=== PATIENT | male | born 1955 | race Caucasian/White ===

== ENCOUNTER 2019-10-16 16:00 | Observation (INO) ==
[2019-10-16] MEDS ORDERED: ASPIRIN 81 MG CHEW PO STA (16:18)
[2019-10-16 16:28] LABS: Basophils # (auto) 0.06 K/uL (0-0.2); Basophils % (auto) 0.5 %; Eosinophils # (auto) 0.11 K/uL (0-0.5); Eosinophils % (auto) 0.9 %; Hematocrit (blood only) 45.5 % (42-52); Immature Granulocytes # (auto) 0.02 K/uL (0.00-0.02); Immature Granulocytes % (auto) 0.2 %; Lymphocytes # (auto) 2.87 K/uL (1.2-3.4); Lymphocytes % (auto) 23.9 %; Mean Corpuscular Hemoglobin 33.1 pg (25-34); Mean Corpuscular Hgb Conc 35.2 g/dL (32-36); Mean Platelet Volume 10.6 fL (7.4-10.4); Monocytes # (auto) 1.36 K/uL (0.11-0.59); Monocytes % (auto) 11.3 %; Neutrophils # (auto) 7.58 K/uL (1.4-6.5); Neutrophils % (auto) 63.2 %; Platelet Count 191 K/uL (130-400); RDW Coefficient of Variation 13.1 % (11.5-14.5); RDW Standard Deviation 45.4 fL (36.4-46.3); Red Blood Count 4.84 M/uL (4.7-6.1)
--- NOTE | 2019-10-16 16:28 | Emergency Department Note ---
Impression & Plan Chest pain, Depression ED Provider Note Provider: Kulwant Atwood MD DATE OF SERVICE: 10/16/2019 CHIEF COMPLAINT: Chest pain HISTORY OF PRESENT ILLNESS: Patient is a 64-year-old gentleman history of diabetes, hypertension, pneumonia presenting today with reports of 3 days of some epigastric and left-sided chest discomfort. Reports today he was driving back from [place] after a began to experience some worsening left- sided pain with left arm pain and some radiation to the right jaw. Came here for further evaluation of this started an hour or 2 ago. Patient denies any trauma. Does report that he is been under significant stress and feels depressed. Reports did recently moved here about a month ago from [place]. Denies fever. Reports weight loss over the last 2 years. Denies significant leg swelling. Denies a cardiac history. Patient reports he has had some interm ittent swelling of the lymph nodes of his neck worse earlier this now improved. No evidence of airway obstruction or stridor. Reports generalized fatigue and lack of interest in things. REVIEW OF SYSTEMS: A total of 10 review of systems was obtained and negative except as stated above in the HPI. PAST MEDICAL HISTORY: As noted above MEDICATIONS: Reviewed and include insulin SOCIAL HISTORY: Patient is a smoker. . PHYSICAL EXAM: GENERAL: alert and oriented in no acute distress on stretcher Head: normocephalic and atraumatic EYES: No injection, discharge or icterus. PERRL NECK: Trachea midline. Supple. ENT: Mucous membranes pink and moist. Minimal cervical lymphadenopathy. LUNGS: Airway patent. No retractions. Breath sounds clear HEART: Regular rate and rhythm. No chest wall tenderness ABDOMEN: Soft with some mild to moderate epigastric left upper quadrant tenderness. SKIN: Acyanotic, warm, dry, without rashes EXTREMITIES: Without swelling, tenderness or deformity except for some slight tenderness of the left upper arm without erythema or fluctuance appreciated, no crepitus here either NEUROLOGICAL: No focal deficits. No aphasia. No facial droop or slurred speech. Ambulatory. Psych: Denies HI. Reports loss of hope and SI. States he is a plan but does not divulge this to me. EK bpm normal sinus rhythm. No PVC. No acute ST segment elevation or dep ression. Normal QTC and axis. CONTINUOUS CARDIAC MONITORING: was ordered and showed a heart rate of 88 bpm in sinus rhythm Patient's hypertension was referred to the [facility] COURSE: 1612 Patient was first seen and H&P performed. 1640 patient states he sometimes gets epigastric discomfort like this and gave a GI cocktail to him. He had long discussion with me about stresses in his life regarding the recent loss of daughter's , recent extramarital stresses and recent move and states he is very depressed. Has had recent thoughts of wanting to harm himself. Reports history 35 years ago of suicide attempt. 1833 Patient reassessed and updated. Patient was having some improvement of his chest and jaw symptoms. Still with some minimal left arm pain. Patient was still tearful and showing me pictures of his parents grave. Will discuss further observation here in the hospital with the hospitalist. 192 discussed the case with the [facility] hospitalist Dr. Dai for further evaluation as an inpatient. Patient's laboratory studies and imaging reviewed. Differential includes Cardiac ischemia, aortic dissection, pulmonary embolism, pneumothorax, pneumonia, pericarditis, myocarditis, esophageal rupture, GERD, cholecystitis, pancreatitis, musculoskeletal, as well as other pathologies. IMPRESSION/MEDICAL DECISION MAKING: Patient taken immediately from triage to room a 1 for assessment they report he was diaphoretic complaining of epigastric and chest discomfort rating to left arm. Initially seen there then moved to room B3 for further evaluation. EKG without significant acute findings. Has had some of the symptoms for several days although worsening now with radiation to left arm and neck. No trauma findings. No fever or infectious symptoms. Given the recent travel and complaints to complete a CT of the chest as well as CT abdomen pelvis to exclude PE or other intrathoracic or intra-abdominal pathology. Basic labs are completed to exclude hepatitis or pancreatitis. Troponin was sent. Given aspirin here initially. Numbness is fingers could be diabetic neuropathy versus stress or anxiety symptoms. States he has generalized fatigue and the tingling could also represent some anxiety depression symptoms specially in light of the today as well as some social stresses at home and a recent move from out of state. Patient does report active SI and states he has thought of a plan to not take his medicines before but does not divulge more. Symptoms physically manifesting could be this again or little bit GI. Given a GI cocktail. Has recently had his Zoloft increased by PCP. Recently started on levothyroxine. TSH was within normal limits today. Troponin is undetectable. No evidence of pancreatitis or hepatitis. White count of 12 nonspecific. Patient on reassessment has improvement of symptoms although still stated little bit of 2 out of 10 left arm pain. Heart score 4. CT scan reviewed without evidence of PE or acute intra-abdominal pathology. Patient made aware of findings of infrarenal aortic aneurysm. Should follow-up with his doctor about this. Coronary calcifications noted on here with a heart score 4 did recommend further observation overnight for cardiac rule out. Patient would also benefit from likely psychiatric consultation for his severe depression. Discussed with the patient was in agreement. Hospitalist will evaluate. Patient's was later updated via phone. DIAGNOSIS: Chest pain, anxiety/depression, suicidal thoughts DISPOSITION: Hospitalist will evaluate Patient was agreeable with this plan. Past Med/Surg History Social History Preferred Language: Belarusian Communication Ability: Effective Beliefs That Will Affect Care: None and Spiritual Current Living Situation: Spouse Current Living Situation Comment: lives with Other Information That Helps Us Care for You: Yes ( suffers from PTSD and in jae had an affair) Feels Safe at Home: Yes Safety Concerns: Feels Safe At This Time Smoking Status: Heavy tobacco smoker Tobacco Type: cigarettes ; Cigarettes Per Day: 20 ; Tobacco Cessation Education Requested by Patient: No Hx Alcohol Use: No Hx Substance Use: No Allergies Allergies Allergy/AdvReac Type Severity Reaction Status Date / Time cat dander Allergy itchy Verified 10/16/19 17:05 eyes, sneezing dog dander Allergy itchy Verified 10/16/19 17:05 eyes, sneezing Home Meds Home Medications Medication Instructions Recorded Confirmed Nasal [place] Unknown 1 dose NA UD PRN 10/16/19 10/16/19 T-Relief Cbd+13 1 dose SC UD 10/16/19 10/16/19 albuterol sulfate [Ventolin HFA] 2 puff INHALATION Q4 PRN 10/16/19 10/16/19 aspirin 325 mg PO DAILY 10/16/19 10/16/19 atorvastatin 40 mg PO QPM 10/16/19 10/16/19 cetirizine [Zyrtec] 5 mg PO QPM 10/16/19 10/16/19 cholecalciferol (vitamin D3) 125 mcg PO DAILY 10/16/19 10/16/19 [Vitamin D3] fexofenadine 180 mg PO DAILY PRN 10/16/19 10/16/19 insulin NPH isoph U-100 human 50 unit SUBCUT BID 10/16/19 10/16/19 [Novolin N NPH U-100 Insulin] insulin regular hum U-500 conc 0 unit SUBCUT TIDM 10/16/19 10/16/19 [Humulin R U-500 (Conc) Kwikpen] levothyroxine 50 mcg PO DAILY 10/16/19 10/16/19 liraglutide [Victoza 3-Jones] 1.2 mg SUBCUT DAILY 10/16/19 10/16/19 lisinopril [Zestril] 10 mg PO DAILY 10/16/19 10/16/19 metformin 1,000 mg PO BID 10/16/19 10/16/19 sertraline [Zoloft] 100 mg PO DAILY 10/16/19 10/16/19 sildenafil 100 mg PO DAILY PRN 10/16/19 10/16/19 Results & Data (ED) Vital Signs Vital Signs - 24 hr 10/16/19 16:05 10/16/19 16:06 10/16/19 16:10 Temperature 36.8 C Temperature Source Oral Pulse Rate 93 H 101 H 95 H Pulse Rate from SpO2 Sensor 94 H Pulse Rhythm Regular Pulse Strength Normal Respiratory Rate 18 Respiratory Effort / Characteristics Non-Labored Spontaneous Respiratory Depth Normal Respiratory Pattern Regular Blood Pressure 120/75 120/75 Blood Pressure Mean 95 90 Blood Pressure Position Sitting Pulse Oximetry 97 96 Oxygen Delivery Method Room Air Sepsis Recent Fever Within 48 Hours No Sepsis New/Unexplained Change in Mental Status No Sepsis Action Taken by Nursing No Action Required 10/16/19 16:20 10/16/19 16:21 10/16/19 16:30 Temperature Temperature Source Pulse Rate 95 H 90 92 H Pulse Rate from SpO2 Sensor 93 H 91 H 92 H Pulse Rhythm Pulse Strength Respiratory Rate 19 12 19 Respiratory Effort / Characteristics Respiratory Depth Respiratory Pattern Blood Pressure 103/66 96/55 L Blood Pressure Mean 77 65 Blood Pressure Position Pulse Oximetry 95 95 95 Oxygen Delivery Method Sepsis Recent Fever Within 48 Hours Sepsis New/Unexplained Change in Mental Status Sepsis Action Taken by Nursing 10/16/19 16:40 10/16/19 16:50 10/16/19 17:00 Temperature Temperature Source Pulse Rate 90 89 88 Pulse Rate from SpO2 Sensor 89 89 89 Pulse Rhythm Pulse Strength Respiratory Rate 16 15 13 Respiratory Effort / Characteristics Respiratory Depth Respiratory Pattern Blood Pressure 96/53 L Blood Pressure Mean 61 Blood Pressure Position Pulse Oximetry 95 97 96 Oxygen Delivery Method Sepsis Recent Fever Within 48 Hours Sepsis New/Unexplained Change in Mental Status Sepsis Action Taken by Nursing 10/16/19 17:10 10/16/19 17:20 10/16/19 17:30 Temperature Temperature Source Pulse Rate 85 87 93 H Pulse Rate from SpO2 Sensor 87 87 83 Pulse Rhythm Pulse Strength Respiratory Rate 16 17 15 Respiratory Effort / Characteristics Respiratory Depth Respiratory Pattern Blood Pressure 113/69 Blood Pressure Mean 80 Blood Pressure Position Pulse Oximetry 98 96 96 Oxygen Delivery Method Sepsis Recent Fever Within 48 Hours Sepsis New/Unexplained Change in Mental Status Sepsis Action Taken by Nursing 10/16/19 17:31 10/16/19 17:40 10/16/19 17:50 Temperature Temperature Source Pulse Rate 86 89 86 Pulse Rate from SpO2 Sensor 85 89 87 Pulse Rhythm Pulse Strength Respiratory Rate 14 20 14 Respiratory Effort / Characteristics Respiratory Depth Respiratory Pattern Blood Pressure Blood Pressure Mean Blood Pressure Position Pulse Oximetry 95 96 97 Oxygen Delivery Method Sepsis Recent Fever Within 48 Hours Sepsis New/Unexplained Change in Mental Status Sepsis Action Taken by Nursing 10/16/19 18:00 10/16/19 18:01 10/16/19 18:16 Temperature Temperature Source Pulse Rate 81 Pulse Rate from SpO2 Sensor 85 Pulse Rhythm Pulse Strength Respiratory Rate 19 44 H Respiratory Effort / Characteristics Respiratory Depth Respiratory Pattern Blood Pressure Blood Pressure Mean 91 Blood Pressure Position Pulse Oximetry 96 Oxygen Delivery Method Sepsis Recent Fever Within 48 Hours Sepsis New/Unexplained Change in Mental Status Sepsis Action Taken by Nursing 10/16/19 18:20 10/16/19 18:30 10/16/19 18:40 Temperature Temperature Source Pulse Rate 89 84 88 Pulse Rate from SpO2 Sensor 89 85 90 Pulse Rhythm Pulse Strength Respiratory Rate 12 11 L 20 Respiratory Effort / Characteristics Respiratory Depth Respiratory Pattern Blood Pressure 128/79 117/72 Blood Pressure Mean 107 90 Blood Pressure Position Pulse Oximetry 97 95 96 Oxygen Delivery Method Sepsis Recent Fever Within 48 Hours Sepsis New/Unexplained Change in Mental Status Sepsis Action Taken by Nursing 10/16/19 18:50 10/16/19 19:00 10/16/19 19:10 Temperature Temperature Source Pulse Rate 91 H 92 H 89 Pulse Rate from SpO2 Sensor 89 82 90 Pulse Rhythm Pulse Strength Respiratory Rate 13 17 26 H Respiratory Effort / Characteristics Respiratory Depth Respiratory Pattern Blood Pressure 135/88 Blood Pressure Mean 107 Blood Pressure Position Pulse Oximetry 97 96 95 Oxygen Delivery Method Sepsis Recent Fever Within 48 Hours Sepsis New/Unexplained Change in Mental Status Sepsis Action Taken by Nursing 10/16/19 19:20 10/16/19 19:30 10/16/19 19:39 Temperature Temperature Source Pulse Rate 88 86 Pulse Rate from SpO2 Sensor 87 88 Pulse Rhythm Pulse Strength Respiratory Rate 14 20 Respiratory Effort / Characteristics Respiratory Depth Respiratory Pattern Blood Pressure 126/76 Blood Pressure Mean 94 Blood Pressure Position Pulse Oximetry 96 94 98 Oxygen Delivery Method Room Air Room Air Room Air Sepsis Recent Fever Within 48 Hours Sepsis New/Unexplained Change in Mental Status Sepsis Action Taken by Nursing 10/16/19 19:40 10/16/19 19:50 10/16/19 20:00 Temperature Temperature Source Pulse Rate 88 89 88 Pulse Rate from SpO2 Sensor Pulse Rhythm Pulse Strength Respiratory Rate 15 20 18 Respiratory Effort / Characteristics Respiratory Depth Respiratory Pattern Blood Pressure Blood Pressure Mean Blood Pressure Position Pulse Oximetry Oxygen Delivery Method Sepsis Recent Fever Within 48 Hours Sepsis New/Unexplained Change in Mental Status Sepsis Action Taken by Nursing 10/16/19 20:01 10/16/19 20:10 10/16/19 20:20 Temperature Temperature Source Pulse Rate 89 90 83 Pulse Rate from SpO2 Sensor Pulse Rhythm Pulse Strength Respiratory Rate 13 21 18 Respiratory Effort / Characteristics Respiratory Depth Respiratory Pattern Blood Pressure 95/66 L Blood Pressure Mean 84 Blood Pressure Position Pulse Oximetry 96 Oxygen Delivery Method Room Air Sepsis Recent Fever Within 48 Hours Sepsis New/Unexplained Change in Mental Status Sepsis Action Taken by Nursing Laboratory Data Result diagrams: 10/16/19 16:06 10/16/19 16:06 Lab Results 10/16/19 10/16/19 10/16/19 Range/Units 16:06 16:06 16:06 WBC 12.00 H (4.8-10.8) K/uL RBC 4.84 (4.7-6.1) M/uL Hgb 16.0 (14.0-18.0) g/dL Hct 45.5 (42-52) % MCV 94.0 (80-100) fL MCH 33.1 (25-34) pg MCHC 35.2 (32-36) g/dL RDW Std Deviation 45.4 (36.4-46.3) fL RDW Coeff of August 13.1 (11.5-14.5) % Plt Count 191 (130-400) K/uL MPV 10.6 H (7.4-10.4) fL Immature Gran % (Auto) 0.2 % Neut % (Auto) 63.2 % Lymph % (Auto) 23.9 % [place] % (Auto) 11.3 % Eos % (Auto) 0.9 % Baso % (Auto) 0.5 % Immature Gran # (Auto) 0.02 (0.00-0.02) K/uL Neut # (Auto) 7.58 H (1.4-6.5) K/uL Lymph # (Auto) 2.87 (1.2-3.4) K/uL [place] # (Auto) 1.36 H (0.11-0.59) K/uL Eos # (Auto) 0.11 (0-0.5) K/uL Baso # (Auto) 0.06 (0-0.2) K/uL PT 10.3 (9.0-12.0) Seconds INR 1.0 (0.9-1.1) APTT 25.6 (21.0-31.0) Seconds PTT Ratio 0.9 Sodium 141 (136-145) mmol/L Potassium 4.5 (3.5-5.1) mmol/L Chloride 109 H (98-107) mmol/L Carbon Dioxide 22 (21-32) mmol/L Anion Gap 10.0 (3-11) BUN 29 H (7-18) mg/dl Creatinine 1.30 (0.6-1.4) mg/dl Est Cr Clr Drug Dosing 67.1 ml/min Est GFR ( Amer) 66.4 Est GFR (Non-Af Amer) 57.3 BUN/Creatinine Ratio 22.7 H (10-20) Glucose 193 H (70-99) mg/dl Calcium 9.1 (8.5-10.1) mg/dl Magnesium 2.3 (1.8-2.4) mg/dl Total Bilirubin 0.4 (0.2-1) mg/dl AST 15 (15-37) U/L ALT 40 (12-78) U/L Alkaline Phosphatase 69 (45-117) U/L Troponin I < 0.015 (0-0.045) ng/ml Total Protein 7.6 (6.4-8.2) gm/dl Albumin 3.8 (3.4-5.0) gm/dl Globulin 3.8 (2.5-4.0) gm/dl Albumin/Globulin Ratio 1.0 (0.9-2) Lipase 249 (73-393) U/L TSH 2.340 (0.300-4.500) uIu/ml Administered Medications Ioversol (Optiray 320 125ml) 119 ml IV ONCE PRN PRN Reason: Interaction Checking Stop: 10/20/19 18:07 Last Admin: 10/16/19 18:09 Dose: 119 ml Documented by: [id number] Discontinued Medications Al Hydrox/Mg Hydrox/Simethicone () 1 dose PO ONE ONE Stop: 10/16/19 16:43 Last Admin: 10/16/19 16:56 Dose: 1 dose Documented by: [id number] Aspirin (Aspirin Chew) 324 mg PO NOW STA Stop: 10/16/19 16:19 Last Admin: 10/16/19 16:56 Dose: 324 mg Documented by: [id number] Diphenhydramine HCl (Benadryl Capsule) 25 mg PO NOW ONE Stop: 10/16/19 18:48 Last Admin: 10/16/19 19:39 Dose: 25 mg Documented by: [id number] Sodium Chloride (Nss 1000ml) 1,000 mls @ 999 mls/hr IV .Q1H1M LILA Stop: 10/16/19 17:30 Last Infusion: 10/16/19 17:57 Dose: 0 mls/hr Documented by: [id number] Admin: 10/16/19 16:56 Dose: 999 mls/hr Documented by: [id number] Discharge Plan Visit Data Chief Complaint: Chest Pain Stated Complaint: CHEST PAIN INTO LEFT ARM RIGHT JAW ED Provider: Kulwant Atwood Discharge Problem: Chest pain, Depression Patient Disposition: Home - Self-Care Condition: Good Discharge Instructions Interventions: ED Discharge Assessment Last Done: 10/16/19 22:50 Discharge Problem: Chest pain Qualifiers: Chest pain type: unspecified Qualified Code(s): R07.9 - Chest pain, unspecified Depression Qualifiers: Depression Type: major depressive disorder Major depression recurrence: recurrent Active/Remission status: currently active Major depression episode severity: severe Psychotic features: without psychotic features Qualified Code(s): F33.2 - Major depressive disorder, recurrent severe without psychotic features
[2019-10-16] MEDS ORDERED: SODIUM CHLORIDE 0.9% 1000ML 1,000 ML IV SCH (16:30)
[2019-10-16 16:39] LABS: Partial Thromboplastin Ratio 0.9; Partial Thromboplastin Time 25.6 Seconds (21.0-31.0); Prothrombin Time 10.3 Seconds (9.0-12.0)
[2019-10-16 16:42] LABS: Chloride 109 mmol/L (98-107); Potassium 4.5 mmol/L (3.5-5.1); Sodium 141 mmol/L (136-145)
[2019-10-16] MEDS ORDERED: GI COCKTAIL ED USE PO ONE (16:42)
[2019-10-16 16:47] LABS: Alanine Aminotransferase 40 U/L (12-78); Albumin Level 3.8 gm/dl (3.4-5.0); Aspartate Aminotransferase 15 U/L (15-37); BUN Creatinine Ratio 22.7 (10-20); Blood Urea Nitrogen 29 mg/dl (7-18); Calcium 9.1 mg/dl (8.5-10.1); Carbon Dioxide 22 mmol/L (21-32); Creatinine Clr Calc Pharmacy 67.1 ml/min; Est GFR (African American) 66.4; Est GFR (Non-African American) 57.3; Glucose 193 mg/dl (70-99); Lipase 249 U/L (73-393)
[2019-10-16 16:58] LABS: Alkaline Phosphatase 69 U/L (45-117); Bilirubin,Total 0.4 mg/dl (0.2-1); Globulin 3.8 gm/dl (2.5-4.0); Total Protein 7.6 gm/dl (6.4-8.2); Troponin I < 0.015 ng/ml (0-0.045)
--- NOTE | 2019-10-16 17:08 | XRay Report ---
SINGLE VIEW CHEST CLINICAL HISTORY: Atypical chest pain. FINDINGS: An AP, portable, upright chest radiograph is obtained. No prior studies are available for c omparison at the time of dictation. The examination is degraded by portable technique and apical lord otic positioning. The cardiomediastinal silhouette is top normal for projection noting atheroscleroti c calcification of the thoracic aorta. There is mild bibasilar scarring/atelectasis. No airspace cons olidation or large pleural effusion is identified. No pneumothorax is seen. The bony thorax is grossl y intact. IMPRESSION: No active disease in the chest. ACT 112: Negative or not required by law. Electronically signed by: Wes Ramos M.D. 10/16/2019 5:06 PM
[2019-10-16] MEDS ORDERED: OPTIRAY 320 125ml IV PRN (18:08)
--- NOTE | 2019-10-16 18:31 | CT Scan Report ---
CT ANGIOGRAM OF THE CHEST; CT SCAN OF THE ABDOMEN AND PELVIS WITH IV CONTRAST CLINICAL HISTORY: Atypical chest pain. Epigastric abdominal pain. COMPARISON STUDY: Chest x-ray dated 10/16/2019. TECHNIQUE: Following the IV administration of 119 of Optiray 320, CT angiogram of the chest is perfor med from the upper abdomen to the thoracic inlet utilizing the pulmonary embolus protocol. Images are reviewed in the axial, sagittal, coronal planes. 3-D MIPS images are created and assessed. Subsequen tly, CT scan of the abdomen and pelvis was performed from the lung bases to the proximal femora. Imag es are reviewed in the axial, sagittal, and coronal planes. IV contrast was administered without comp lication. A dose lowering technique was utilized adhering to the principles of ALARA. CT DOSE: 1680.04 mGy.cm FINDINGS: CHEST: Thyroid: Imaged portions of the thyroid gland are normal in size and attenuation. Thoracic aorta: There is mild atherosclerotic calcification of the thoracic aorta, which is normal in caliber and demonstrates bovine variant arch anatomy. No dissection is seen. Pulmonary vasculature: The pulmonary trunk is normal in caliber. There are no filling defects identif ied in the main, lobar, or segmental pulmonary arteries to indicate pulmonary embolus. Heart: The heart is normal in size and without pericardial effusion. The coronary arteries are densel y calcified. Lungs and pleural spaces: Evaluation of the lung parenchyma is modestly degraded by motion artifact. There is no airspace consolidation or pleural effusion. Scarring/atelectasis is noted at the lung bas es. The trachea and central airways are clear. Mild diffuse peribronchial thickening is observed. Mediastinum: There is no mediastinal lymphadenopathy. Corinne: Clear. Axillae: There is no axillary lymphadenopathy. Bony thorax: No lytic or blastic lesions are identified. ABDOMEN AND PELVIS: Liver: The contrast-enhanced liver is enlarged, measuring 21.6 cm in length. The liver is otherwise n ormal in contour and attenuation. There is no intrahepatic or ductal dilatation. The hepatic veins an d portal veins are patent. Gallbladder: Unremarkable. Spleen: Normal in size and attenuation. Pancreas: Unremarkable. Adrenal glands: Unremarkable. Kidneys: The contrast enhanced demonstrate mild cortical atrophy and are without hydronephrosis. The kidneys enhance symmetrically. Abdominal vasculature: There is advanced atherosclerotic calcification and ectasia of the abdominal a rod. An infrarenal abdominal catheter is in measure up to 3.3 cm. There is aneurysmal dilatation of the right common iliac artery which measures up to 2.1 cm. Stomach and bowel: There is a small hiatal hernia. There is moderate to advanced colonic diverticulos is without CT evidence of acute diverticulitis. There is moderate colonic fecal retention. No bowel o bstruction is seen. The appendix is well-visualized and normal. Peritoneum: There is no intraperitoneal free air or abdominal ascites. Lymphadenopathy: None. Pelvic viscera: The bladder, prostate, and seminal vesicles are normal as imaged. Skeletal structures: Mild to moderate lumbosacral spondylosis is observed. No lytic or blastic lesion s are seen. IMPRESSION: 1. There is no evidence of pulmonary embolus in the main, lobar, or segmental pulmonary arteries. 2. There is no airspace consolidation or pleural effusion. 3. Mild diffuse peribronchial thickening suggests bronchitis/reactive air disease. Clinical correlati on will be required. 4. There are no acute infectious or inflammatory findings in the abdomen or pelvis. 5. There is a 3.3 cm aneurysm of the infrarenal abdominal aorta. 6. 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 7. Hepatomegaly. 8. Moderate to advanced colonic diverticulosis without CT evidence of acute diverticulitis. 9. There is advanced atherosclerotic calcification of the coronary arteries. 10. Additional findings as above. ACT 112: Negative or not required by law. Electronically signed by: Wes Ramos M.D. 10/16/2019 6:30 PM
[2019-10-16 19:59] LABS: Magnesium 2.3 mg/dl (1.8-2.4)
--- NOTE | 2019-10-16 20:22 | History & Physical Report ---
Date of Service October 16, 2019 Assessment & Plan (1) Chest pain: Possible GERD Rule out ACS given risk factors DM 2 insulin requiring, BSG elevated No recent hemoglobin A1c on file hyperlipidemia on statin Rx mood disorder, suboptimal with fleeting suicidal ideations AAA, incidental finding on CT read Possible JANET as per patient account ongoing tobacco abuse OBS PCU Initiate H2 marv Rx for GERD Follow troponin TTE, Cardiology consult in a.m. RE chest pain Update hemoglobin A1c, lipid profile Suicide precautions Psych consult RE depression with suicidality Basal insulin, ISS BG goal [id number], carb count coverage Outpatient follow-up surveillance imaging for AAA Outpatient sleep study Nicotine patch, patient strongly counseled to stop smoking given PVD on CT. DVT prophylaxis. Lovenox subcu Full code Patient's family requesting updates from providers. Ms. Janet Arteaga (), contact #[phone] Mr. Mauri Joshi (son), contact #[phone] Text document was generated using blueKiwi voice recognition software. It may contain grammatical or spelling errors. Kindly contact undersigned for clarification of any documentation item in question. History of Present Illness Chief Complaint: Chest pain Primary Care Provider: Maddy Albert, History obtained from patient, family, and records. Medical history significant for DM 2 insulin requiring, hyperlipidemia, mood disorder, past alcohol abuse, ongoing tobacco abuse. Patient moved to [facility] about a month ago after residing in [place] the last 2 years. The last 2 weeks patient noted worsening shortness of breath usually on exertion. Epigastric discomfort a few days in a week described as indigestion-like relieved by baking soda at home. Significant personal stressors of late, fleeting suicidal ideations. Patient was driving back to [facility] from [place] after attending [facility] this afternoon when he experienced achy subcostal discomfort going to the left arm somewhat different from indigestion symptoms. Usual smoker's cough symptoms as per patient. At the ER, patient given aspirin and GI cocktail. Patient currently comfortable. 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 Allergies Allergy/AdvReac Type Severity Reaction Status Date / Time cat dander Allergy itchy Verified 10/16/19 17:05 eyes, sneezing dog dander Allergy itchy Verified 10/16/19 17:05 eyes, sneezing Home Medications Home Medications Medication Instructions Recorded Confirmed Type Nasal [place] Unknown 1 dose NA UD PRN 10/16/19 10/16/19 History T-Relief Cbd+13 1 dose SC UD 10/16/19 10/16/19 History albuterol sulfate [Ventolin HFA] 2 puff INHALATION Q4 PRN 10/16/19 10/16/19 History aspirin 325 mg PO DAILY 10/16/19 10/16/19 History atorvastatin 40 mg PO QPM 10/16/19 10/16/19 History cetirizine [Zyrtec] 5 mg PO QPM 10/16/19 10/16/19 History cholecalciferol (vitamin D3) 125 mcg PO DAILY 10/16/19 10/16/19 History [Vitamin D3] fexofenadine 180 mg PO DAILY PRN 10/16/19 10/16/19 History insulin NPH isoph U-100 human 50 unit SUBCUT BID 10/16/19 10/16/19 History [Novolin N NPH U-100 Insulin] insulin regular hum U-500 conc 0 unit SUBCUT TIDM 10/16/19 10/16/19 History [Humulin R U-500 (Conc) Kwikpen] levothyroxine 50 mcg PO DAILY 10/16/19 10/16/19 History liraglutide [Victoza 3-Jones] 1.2 mg SUBCUT DAILY 10/16/19 10/16/19 History lisinopril [Zestril] 10 mg PO DAILY 10/16/19 10/16/19 History metformin 1,000 mg PO BID 10/16/19 10/16/19 History sertraline [Zoloft] 100 mg PO DAILY 10/16/19 10/16/19 History sildenafil 100 mg PO DAILY PRN 10/16/19 10/16/19 History Past Med/Surg History Social History Preferred Language: Citizen Of [place] Communication Ability: Effective Beliefs That Will Affect Care: None and Spiritual Current Living Situation: Spouse Current Living Situation Comment: lives with Other Information That Helps Us Care for You: Yes ( suffers from PTSD and in jan[place] had an affair) Feels Safe at Home: Yes Safety Concerns: Feels Safe At This Time Smoking Status: Heavy tobacco smoker Tobacco Type: cigarettes ; Cigarettes Per Day: 20 ; Tobacco Cessation Education Requested by Patient: No Hx Alcohol Use: No Hx Substance Use: No Review of Systems Review of Systems: As per HPI, possible JANET symptoms as per patient, all 10 systems reviewed, all other ROS negative Physical Exam Physical Exam: GENERAL: Comfortable, obese, occasionally tearful, no respiratory distress SKIN: Normal color, warm HEENT: Bespectacled, [place] palpebral conjunctivae, no ptosis, moist buccal mucosa NECK : Supple, short neck, no tenderness CHEST : Decreased breath sounds, expiratory wheezes that clear post coughing, no tenderness HEART : RRR, no obvious murmurs ABDOMEN: Some distention, nontender EXTREMITIES : No LE swelling, no LE tenderness, no other conspicuous deformities noted NEUROLOGIC : Coherent, no facial asymmetry, no other gross focality Results & Data Results & Data ([facility]) Vital Signs (Past 12 Hours) Vital Signs Temp Pulse Resp BP Pulse Ox 10/16/19 19:39 98 10/16/19 19:30 86 20 126/76 94 10/16/19 19:20 88 14 96 10/16/19 19:10 89 26 H 95 10/16/19 19:00 92 H 17 135/88 96 10/16/19 18:50 91 H 13 97 10/16/19 18:40 88 20 96 10/16/19 18:30 84 11 L 117/72 95 10/16/19 18:20 89 12 128/79 97 10/16/19 18:16 44 H 10/16/19 18:00 81 19 96 10/16/19 17:50 86 14 97 10/16/19 17:40 89 20 96 10/16/19 17:31 86 14 95 10/16/19 17:30 93 H 15 113/69 96 10/16/19 17:20 87 17 96 10/16/19 17:10 85 16 98 10/16/19 17:00 88 13 96/53 L 96 10/16/19 16:50 89 15 97 10/16/19 16:40 90 16 95 10/16/19 16:30 92 H 19 96/55 L 95 10/16/19 16:21 90 12 95 10/16/19 16:20 95 H 19 103/66 95 10/16/19 16:10 95 H 10/16/19 16:06 36.8 C 101 H 18 120/75 96 10/16/19 16:05 93 H 120/75 97 Laboratory Results Laboratory Results WBC 12.00 K/uL (4.8-10.8) H 10/16/19 16:06 RBC 4.84 M/uL (4.7-6.1) 10/16/19 16:06 Hgb 16.0 g/dL (14.0-18.0) 10/16/19 16:06 Hct 45.5 % (42-52) 10/16/19 16:06 MCV 94.0 fL (80-100) 10/16/19 16:06 MCH 33.1 pg (25-34) 10/16/19 16:06 MCHC 35.2 g/dL (32-36) 10/16/19 16:06 RDW Std Deviation 45.4 fL (36.4-46.3) 10/16/19 16:06 RDW Coeff of August 13.1 % (11.5-14.5) 10/16/19 16:06 Plt Count 191 K/uL (130-400) 10/16/19 16:06 MPV 10.6 fL (7.4-10.4) H 10/16/19 16:06 Immature Gran % (Auto) 0.2 % 10/16/19 16:06 Neut % (Auto) 63.2 % 10/16/19 16:06 Lymph % (Auto) 23.9 % 10/16/19 16:06 [place] % (Auto) 11.3 % 10/16/19 16:06 Eos % (Auto) 0.9 % 10/16/19 16:06 Baso % (Auto) 0.5 % 10/16/19 16:06 Immature Gran # (Auto) 0.02 K/uL (0.00-0.02) 10/16/19 16:06 Neut # (Auto) 7.58 K/uL (1.4-6.5) H 10/16/19 16:06 Lymph # (Auto) 2.87 K/uL (1.2-3.4) 10/16/19 16:06 [place] # (Auto) 1.36 K/uL (0.11-0.59) H 10/16/19 16:06 Eos # (Auto) 0.11 K/uL (0-0.5) 10/16/19 16:06 Baso # (Auto) 0.06 K/uL (0-0.2) 10/16/19 16:06 PT 10.3 Seconds (9.0-12.0) 10/16/19 16:06 INR 1.0 (0.9-1.1) 10/16/19 16:06 APTT 25.6 Seconds (21.0-31.0) 10/16/19 16:06 PTT Ratio 0.9 10/16/19 16:06 Sodium 141 mmol/L (136-145) 10/16/19 16:06 Potassium 4.5 mmol/L (3.5-5.1) 10/16/19 16:06 Chloride 109 mmol/L (98-107) H 10/16/19 16:06 Carbon Dioxide 22 mmol/L (21-32) 10/16/19 16:06 Anion Gap 10.0 (3-11) 10/16/19 16:06 BUN 29 mg/dl (7-18) H 10/16/19 16:06 Creatinine 1.30 mg/dl (0.6-1.4) 10/16/19 16:06 Est Cr Clr Drug Dosing 67.1 ml/min 10/16/19 16:06 Est GFR ( Amer) 66.4 10/16/19 16:06 Est GFR (Non-Af Amer) 57.3 10/16/19 16:06 BUN/Creatinine Ratio 22.7 (10-20) H 10/16/19 16:06 Glucose 193 mg/dl (70-99) H 10/16/19 16:06 Calcium 9.1 mg/dl (8.5-10.1) 10/16/19 16:06 Magnesium 2.3 mg/dl (1.8-2.4) 10/16/19 16:06 Total Bilirubin 0.4 mg/dl (0.2-1) 10/16/19 16:06 AST 15 U/L (15-37) 10/16/19 16:06 ALT 40 U/L (12-78) 10/16/19 16:06 Alkaline Phosphatase 69 U/L (45-117) 10/16/19 16:06 Troponin I < 0.015 ng/ml (0-0.045) 10/16/19 16:06 Total Protein 7.6 gm/dl (6.4-8.2) 10/16/19 16:06 Albumin 3.8 gm/dl (3.4-5.0) 10/16/19 16:06 Globulin 3.8 gm/dl (2.5-4.0) 10/16/19 16:06 Albumin/Globulin Ratio 1.0 (0.9-2) 10/16/19 16:06 Lipase 249 U/L (73-393) 10/16/19 16:06 TSH 2.340 uIu/ml (0.300-4.500) 10/16/19 16:[address] chest/abdomen/pelvis: 1. There is no evidence of pulmonary embolus in the main, lobar, or segmental pulmonary arteries. 2. There is no airspace consolidation or pleural effusion. 3. Mild diffuse peribronchial thickening suggests bronchitis/reactive air disease. Clinical correlation will be required. 4. There are no acute infectious or inflammatory findings in the abdomen or pelvis. 5. There is a 3.3 cm aneurysm of the infrarenal abdominal aorta. 6. 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 7. Hepatomegaly. 8. Moderate to advanced colonic diverticulosis without CT evidence of acute di verticulitis. 9. There is advanced atherosclerotic calcification of the coronary arteries. EKG as per my interpretation : Rate 100, NSR, normal axis, incomplete RBBB, T wave flattening lateral leads (1) Chest pain Chest pain type: unspecified Qualified Code(s): R07.9 - Chest pain, unspecified
[2019-10-16] MEDS ORDERED: MoRPHine SULFATE 4 MG/ML 1 ML CARP\\VIAL IV PRN (23:34)
[2019-10-16] MEDS ORDERED: GLUCOSE 10 TABS/TUBE PO PRN (23:34)
[2019-10-16] MEDS ORDERED: SODIUM CHLORIDE 0.45 % 1,000 ML IV ONE (23:34)
[2019-10-16] MEDS ORDERED: PROMETHAZINE HCL 12.5 MG in SODIUM CHLORIDE 0.9% 50 ML IV PRN (23:34)
[2019-10-16] MEDS ORDERED: DEXTROSE 50% 50 ML SYRINGE IV PRN (23:34)
[2019-10-16] MEDS ORDERED: TRAMADOL HCL 50 MG TABLET PO PRN (23:34)
[2019-10-16] MEDS ORDERED: NITROGLYCERIN SL 0.4 MG/TAB TAB SL PRN (23:34)
[2019-10-16] MEDS ORDERED: GLUCOSE 40% GEL 15 GM TUBE PO PRN (23:34)
[2019-10-16] MEDS ORDERED: ACETAMINOPHEN 325 MG TAB PO PRN (23:34)
[2019-10-16] MEDS ORDERED: FEXOFENADINE HCL 180 MG TAB PO PRN (23:34)
[2019-10-16] MEDS ORDERED: CARBOHYDRATES FOR HYPOGLYCEMIA PO PRN (23:34)
[2019-10-16] MEDS ORDERED: GLUCAGON FOR INJ 1 MG VIAL SQ PRN (23:34)
[2019-10-17] MEDS: NICOTINE 14 MG/24 HR PATCH TD SCH ×2 (02:46→11:37)
[2019-10-17] MEDS: ATORVASTATIN 40 MG TAB PO SCH ×2 (02:46→21:25)
[2019-10-17] MEDS: FAMOTIDINE 10 MG TABLET PO SCH ×3 (02:46→21:25)
[2019-10-17] MEDS: CETIRIZINE HCL 10 MG TABLET PO SCH ×2 (02:46→21:25)
[2019-10-17] MEDS: INSULIN ASPART 100 UNITS/ML 3 ML PEN SC SCH ×5 (02:50→21:28)
[2019-10-17] MEDS: INSULIN HUMAN NPH SC SCH ×3 (02:50→17:12)
[2019-10-17 05:47] LABS: Basophils # (auto) 0.05 K/uL (0-0.2); Basophils % (auto) 0.6 %; Eosinophils # (auto) 0.18 K/uL (0-0.5); Eosinophils % (auto) 2.1 %; Hematocrit (blood only) 43.8 % (42-52); Hemoglobin 14.9 g/dL (14.0-18.0); Immature Granulocytes # (auto) 0.02 K/uL (0.00-0.02); Immature Granulocytes % (auto) 0.2 %; Lymphocytes # (auto) 2.81 K/uL (1.2-3.4); Lymphocytes % (auto) 33.3 %; Mean Platelet Volume 10.5 fL (7.4-10.4); Monocytes # (auto) 0.89 K/uL (0.11-0.59); Monocytes % (auto) 10.5 %; Neutrophils % (auto) 53.3 %; Platelet Count 145 K/uL (130-400); RDW Coefficient of Variation 13.2 % (11.5-14.5); RDW Standard Deviation 45.3 fL (36.4-46.3); Red Blood Count 4.66 M/uL (4.7-6.1); White Blood Count 8.45 K/uL (4.8-10.8)
[2019-10-17 05:59] LABS: Partial Thromboplastin Time 26.9 Seconds (21.0-31.0)
[2019-10-17 06:04] LABS: Estimated Average Glucose 160 mg/dl; Hemoglobin A1C 7.2 % (4.5-5.6)
[2019-10-17] MEDS: LEVOTHYROXINE SODIUM 50 MCG TABLET PO SCH (06:09)
[2019-10-17 06:18] LABS: BUN Creatinine Ratio 22.3 (10-20); Blood Urea Nitrogen 19 mg/dl (7-18); Calcium 8.7 mg/dl (8.5-10.1); Carbon Dioxide 22 mmol/L (21-32); Chloride 110 mmol/L (98-107); Cholesterol 149 mg/dl (0-200); Est GFR (Non-African American) 90.6; Glucose 112 mg/dl (70-99); Potassium 4.2 mmol/L (3.5-5.1); Sodium 140 mmol/L (136-145)
[2019-10-17 06:24] LABS: Chol HDL Ratio 4; HDL Cholesterol 38 mg/dl; LDL Cholesterol Calculated 79 mg/dl; Triglycerides 161 mg/dl (0-150); Troponin I < 0.015 ng/ml (0-0.045); VLDL Cholesterol 32 mg/dl
[2019-10-17] MEDS: SERTRALINE HCL 100 MG TABLET PO SCH (08:36)
[2019-10-17] MEDS: lisinopriL 10 MG TAB PO SCH (08:36)
[2019-10-17] MEDS: ENOXAPARIN INJ 40 MG/0.4 ML SYR SQ SCH (08:37)
[2019-10-17] MEDS ORDERED: ASPIRIN 325 MG ECTAB PO SCH (09:00)
--- NOTE | 2019-10-17 10:32 | Cardiology Consultation ---
Date of Consultation October 17, 2019 Assessment & Plan (1) Chest pain: The patient describes recent exertional dyspnea with lower levels of exertion than previous. And chest discomfort. Serial cardiac enzymes and EKG x2 are negative. I am very concerned however that given his underlying cardiac risk factors including longstanding diabetes, obesity, dyslipidemia, hypertension, strong family history of coronary heart disease, cigarette smoking, newly diagnosed 3.3 cm abdominal aortic aneurysm, and severe coronary artery calcification noted on CT of the chest, that his pretest probably for underlying significant coronary heart disease is very high. Would recommend ASA 81 mg (rather than 325), continued atorvastatin, add metoprolol. Echo in process , will review. Remain in hospital for cardiac cath on 10/20/19. Pt agreeable. (2) SVT (supraventricular tachycardia): Asymptomatic brief runs, add metoprolol. (3) Dyslipidemia: LDL cholesterol 79 mg/dL on atorvastatin 40. Add ezetimibe 10 mg daily. (4) Depression: Patient currently on one-to-one supervision. Agree with psychiatric evaluation. (5) AAA (abdominal aortic aneurysm): Incidental finding of 3.3 cm abdominal aortic aneurysm on CT. Abdominal aorta with noted diffuse atherosclerosis. Continue aggressive statin therapy as noted above. Repeat surveillance CT or ultrasound in 6 months. History of Present Illness Attending Physician: Johnnie Jones MD History of Present Illness Harlan Arteaga is a 64 year old male seen in cardiology consultation per the request of Dr Liang for the evaluation of chest pain. The patient states that for the last 2 to 4 weeks he has noted increasing shortness of breath with activity such as climbing stairs. Yesterday, he was returning from a in [place] for his grandson who had been born prematurely. He describes a great deal of personal emotional distress as well as emotional distress amongst his family and he had experienced a vague bandlike chest discomfort below his nipples. The discomfort is of less intensity now, but he still feels like he has it at a 1/10 intensity. He recently moved to the area from [place]. 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 Ongoing risk factor management was recommended at that time. Past Medical History: Type 2 diabetes mellitus since 1981 Hypertension Dyslipidemia 0.75-2 PPD cigarette smoker Obesity Family History: Father suddenly of myocardial infarction at the age of 59 The patient's older brother was hospitalized, and he describes that the brother was being transferred by ambulance from 1 facility to another pending cardiac assessment, and suffered a cardiac arrest event. He was successfully resuscitated. Found to have multivessel coronary disease, underwent CABG, this occurred when his brother was approximately 65 years old. Brother is currently alive. 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 He notes additional stressors within his marriage, personally undergoing marital counseling. Describes past suicidal ideations, and current severe depression. Allergies Allergy/AdvReac Type Severity Reaction Status Date / Time cat dander Allergy itchy Verified 10/16/19 17:05 eyes, sneezing dog dander Allergy itchy Verified 10/16/19 17:05 eyes, sneezing Home Medications Home Medications Medication Instructions Recorded Confirmed Type Nasal [place] Unknown 1 dose NA UD PRN 10/16/19 10/16/19 History T-Relief Cbd+13 1 dose SC UD 10/16/19 10/16/19 History albuterol sulfate [Ventolin HFA] 2 puff INHALATION Q4 PRN 10/16/19 10/16/19 History aspirin 325 mg PO DAILY 10/16/19 10/16/19 History atorvastatin 40 mg PO QPM 10/16/19 10/16/19 History cetirizine [Zyrtec] 5 mg PO QPM 10/16/19 10/16/19 History cholecalciferol (vitamin D3) 125 mcg PO DAILY 10/16/19 10/16/19 History [Vitamin D3] fexofenadine 180 mg PO DAILY PRN 10/16/19 10/16/19 History insulin NPH isoph U-100 human 50 unit SUBCUT BID 10/16/19 10/16/19 History [Novolin N NPH U-100 Insulin] insulin regular hum U-500 conc 0 unit SUBCUT TIDM 10/16/19 10/16/19 History [Humulin R U-500 (Conc) Kwikpen] levothyroxine 50 mcg PO DAILY 10/16/19 10/16/19 History liraglutide [Victoza 3-Jones] 1.2 mg SUBCUT DAILY 10/16/19 10/16/19 History lisinopril [Zestril] 10 mg PO DAILY 10/16/19 10/16/19 History metformin 1,000 mg PO BID 10/16/19 10/16/19 History sertraline [Zoloft] 100 mg PO DAILY 10/16/19 10/16/19 History sildenafil 100 mg PO DAILY PRN 10/16/19 10/16/19 History Patient History Social History Preferred Language: Citizen Of [place] Communication Ability: Effective Beliefs That Will Affect Care: None and Spiritual Current Living Situation: Spouse Current Living Situation Comment: lives with Other Information That Helps Us Care for You: Yes ( suffers from PTSD and in [place] had an affair) Feels Safe at Home: Yes Safety Concerns: Feels Safe At This Time Smoking Status: Heavy tobacco smoker Tobacco Type: cigarettes ; Cigarettes Per Day: 20 ; Tobacco Cessation Education Requested by Patient: No Hx Alcohol Use: No Hx Substance Use: No Review of Systems Review of Systems: All systems reviewed & are unremarkable except as noted in HPI & below Physical Exam Physical Exam: Temp Pulse Resp BP Pulse Ox 36.5 C 64 20 105/66 94 10/17/19 08:18 10/17/19 08:18 10/17/19 08:18 10/17/19 08:18 10/17/19 08:18 Constitutional: WD/WN, vitals as above Respiratory: normal respiratory effort, lungs clear to auscultation Cardiovascular: RRR, no murmur, no edema Chest (Breasts): normal inspection/palpation of breasts Gastrointestinal (Abdomen): normal bowel sounds, soft, nontender, no hepatosplenomegaly Neurologic: PERRL, EOMI, accommodation nl, no face palsy, no dysarthria Results & Data ([facility]) Vital Signs (Past 12 Hours) Vital Signs Temp Pulse Pulse Resp BP BP BP 10/17/19 08:18 36.5 C 64 20 105/66 10/17/19 04:14 36.6 C 73 18 98/55 L 10/16/19 23:24 36.6 C 75 18 128/77 10/16/19 22:37 79 15 102/54 L Pulse Ox 10/17/19 08:18 94 10/17/19 04:14 93 10/16/19 23:24 96 10/16/19 22:37 96 Laboratory Results Cardiac Enzymes 10/16/19 10/16/19 10/17/19 Range/Units 16:06 20:42 05:22 AST 15 (15-37) U/L Troponin I < 0.015 < 0.015 < 0.015 (0-0.045) ng/ml Coagulation 10/16/19 10/17/19 Range/Units 16:06 05:22 PT 10.3 (9.0-12.0) Seconds APTT 25.6 26.9 (21.0-31.0) Seconds Lipids 10/17/19 Range/Units 05:22 Triglycerides 161 H (0-150) mg/dl Cholesterol 149 (0-200) mg/dl HDL Cholesterol 38 mg/dl Cholesterol/HDL Ratio 4 CBC 10/16/19 10/17/19 Range/Units 16:06 05:22 WBC 12.00 H 8.45 (4.8-10.8) K/uL RBC 4.84 4.66 L (4.7-6.1) M/uL Hgb 16.0 14.9 (14.0-18.0) g/dL Hct 45.5 43.8 (42-52) % Plt Count 191 145 (130-400) K/uL Neut # (Auto) 7.58 H 4.50 (1.4-6.5) K/uL Lymph # (Auto) 2.87 2.81 (1.2-3.4) K/uL [place] # (Auto) 1.36 H 0.89 H (0.11-0.59) K/uL Eos # (Auto) 0.11 0.18 (0-0.5) K/uL Baso # (Auto) 0.06 0.05 (0-0.2) K/uL Comprehensive Metabolic Panel 10/16/19 10/17/19 Range/Units 16:06 05:22 Sodium 141 140 (136-145) mmol/L Potassium 4.5 4.2 (3.5-5.1) mmol/L Chloride 109 H 110 H (98-107) mmol/L Carbon Dioxide 22 22 (21-32) mmol/L BUN 29 H 19 H (7-18) mg/dl Creatinine 1.30 0.87 D (0.6-1.4) mg/dl Glucose 193 H 112 H (70-99) mg/dl Calcium 9.1 8.7 (8.5-10.1) mg/dl AST 15 (15-37) U/L ALT 40 (12-78) U/L Alkaline Phosphatase 69 (45-117) U/L Total Protein 7.6 (6.4-8.2) gm/dl Albumin 3.8 (3.4-5.0) gm/dl Intake and Output 10/16/19 10/17/19 10/17/19 22:59 06:59 14:59 Intake Total 1000 / 1000 Balance 1000 / 1000 Intake: IV 1000 / 1000 Nss 1000ML 1,000 ml @ 999 mls/ 1000 / 1000 hr IV .Q1H1M [facility] Rx#:[id number] Other: Other Intake Source SIPS Weight 99.7 kg 99.3 kg Diagnostic Findings EKG performed on arrival last evening and again this morning reveals normal sinus rhythm without significant ST changes. The patient did have 2 brief salvos of supraventricular tachycardia of 6 beats in duration and 12 beats in duration overnight and again this morning, with rates of 121 bpm, asymptomatic. Medications Administered Current Inpatient Medications Acetaminophen (Tylenol) 650 mg PO Q4H PRN PRN Reason: Pain or Fever Stop: 11/15/19 23:33 Aspirin (Ecotrin) 325 mg PO DAILY [facility] Stop: 11/16/19 08:59 Last Admin: 10/17/19 08:37 Dose: 325 mg Documented by: Atorvastatin Calcium (Lipitor) 40 mg PO QPM [facility] Stop: 11/15/19 23:33 Last Admin: 10/17/19 02:46 Dose: 40 mg Documented by: Cetirizine HCl (Zyrtec) 5 mg PO QPM [facility] Stop: 11/15/19 23:33 Last Admin: 10/17/19 02:46 Dose: 5 mg Documented by: Dextrose (Dextrose 50%) 25 - 50 ml IV UD PRN; Protocol PRN Reason: Hypoglycemia Protocol Stop: 11/15/19 23:33 Enoxaparin Sodium (Lovenox) 40 mg SQ QAM [facility] Stop: 11/16/19 08:59 Last Admin: 10/17/19 08:37 Dose: 40 mg Documented by: Famotidine (Pepcid) 10 mg PO BID [facility] Stop: 11/15/19 20:59 Last Admin: 10/17/19 08:37 Dose: 10 mg Documented by: Fexofenadine HCl (Crystal) 180 mg PO DAILY PRN PRN Reason: allergies Stop: 11/15/19 23:33 Last Admin: 10/17/19 08:37 Dose: 180 mg Documented by: Glucagon (Glucagen) 1 mg SQ UD PRN; Protocol PRN Reason: Hypoglycemia Protocol Stop: 11/15/19 23:33 Glucose (Dex4 Glucose) 4 - 8 tabs PO UD PRN; Protocol PRN Reason: Hypoglycemia Protocol Stop: 11/15/19 23:33 Glucose (Glucose 40%) 15 - 30 gm PO UD PRN; Protocol PRN Reason: Hypoglycemia Protocol Stop: 11/15/19 23:33 Promethazine HCl 12.5 mg/ (Sodium Chloride) 50.5 mls @ 202 mls/hr IV Q6H PRN PRN Reason: Nausea And Vomiting Stop: 11/15/19 23:33 Insulin Aspart (Novolog Flexpen) 0 units SC ACHS [facility] Stop: 11/16/19 00:59 Last Admin: 10/17/19 08:38 Dose: 3 units Documented by: Insulin Human NPH (Novolin N Nph) 45 units SC BIDM [facility] Stop: 11/16/19 00:59 Last Admin: 10/17/19 08:39 Dose: 45 units Documented by: Levothyroxine Sodium (Synthroid) 50 mcg PO DAILYBB [facility] Stop: 11/16/19 06:29 Last Admin: 10/17/19 06:09 Dose: 50 mcg Documented by: Lisinopril (Zestril) 10 mg PO DAILY [facility] Stop: 11/16/19 08:59 Last Admin: 10/17/19 08:36 Dose: 10 mg Documented by: Miscellaneous (Remove Nicoderm Patch) 1 ea N/A DAILY@0859 [facility] Stop: 11/16/19 08:58 Last Admin: 10/17/19 08:37 Dose: 1 ea Documented by: Miscellaneous (Carbohydrates For Hypoglycemia) 15 - 30 gm PO UD PRN PRN Reason: Hypoglycemia Protocol Stop: 11/15/19 23:33 Morphine Sulfate (Morphine Sulfate) 4 mg IV Q4H PRN PRN Reason: Pain Stop: 10/30/19 23:33 Nicotine (Nicoderm Cq) 14 mg TD QAM [facility] Stop: 11/15/19 20:24 Last Admin: 10/17/19 02:46 Dose: 14 mg Documented by: Nitroglycerin (Nitrostat) 0.4 mg SL UD PRN PRN Reason: Chest Pain Stop: 11/15/19 23:33 Sertraline HCl (Zoloft) 100 mg PO DAILY [facility] Stop: 11/16/19 08:59 Last Admin: 10/17/19 08:36 Dose: 100 mg Documented by: Tramadol HCl (Ultram) 25 - 50 mg PO Q4H PRN PRN Reason: Pain Stop: 11/15/19 23:33 (1) Chest pain Chest pain type: unspecified Qualified Code(s): R07.9 - Chest pain, unspec ified (2) Depression Active/Remission status: currently active Depression Type: major depressive disorder Major depression episode severity: severe Major depression recurrence: recurrent Psychotic features: without psychotic features Qualified Code(s): F33.2 - Major depressive disorder, recurrent severe without psychotic features
[2019-10-17] MEDS: EZETIMIBE 10 MG TABLET PO SCH (11:37)
[2019-10-17] MEDS: METOPROLOL SUCC 25MG EXT REL TAB PO SCH (11:37)
--- NOTE | 2019-10-17 11:58 | Electrocardiogram Report ---
Test Reason : Blood Pressure : / mmHG Vent. Rate : 099 BPM Atrial Rate : 099 BPM P-R Int : 172 ms QRS Dur : 066 ms QT Int : 316 ms P-R-T Axes : 071 074 090 degrees QTc Int : 405 ms Normal sinus rhythm Normal ECG No previous ECGs available Confirmed by Pietro Hardin ([id number]) on 10/17/2019 11:58:16 AM Referred By: REFERRED SELF Confirmed By:Pietro Hardin
--- NOTE | 2019-10-17 12:12 | Psychiatric Consultation ---
Date of Consultation October 17, 2019 Impression / Recommendations Impression 64 yo male with Major depressive disorder, recurrent, worsening symptoms and made suicidal statements in the context of extreme stress--health scare, ongoing marital stress, and loss of grandchild. He is currently denying any thoughts of self-harm and Zoloft was recently increased and has outpatient providers. Given that current plan is to monitor on medical floor pending cath on 10/19, I see no acute need for inpatient psychiatric hospitalization and feel that 1-on-1 can be discontinued, particularly as meds are administered and currently cooperative with care plan. Liaison to round to monitor/document any recurrence and will facilitate copy of consult to [facility] providers. Risk Factors Assessment Do You Have Access To A Gun?: No (denies) Psych History Identifying Data 64 yo male with remote hx of suicide attempt, presented with worsening depression in the context of multiple stressors, admit for work-up of chest pain. Chief Complaint "Yesterday was just too much with the but I'm much better today. Suicide is the most cowardly thing to do". History of Present Illness Psych was consulted as patient made statements about wanting to end his life and his plan would be to stop taking his BP and diabetes medications. He reports having this feeling about 1.5 months ago when called crisis line. He admits to having thoughts of hanging self but "I didn't get a noose or anything, I just needed to talk". "I always feel better after I talk with people". He recently 10/11 had increase in Zoloft by Dr. Albert and started therapy via telehealth. He and his are also starting couples therapy as she was unfaithful on 1 occasion in May and "although I'm over the sex part there is a lot of trust to rebuild". Apparently she is starting to open up a bit about her trauma history. There was a recent move and was 10/15 for the of a 3 day old grandchild. Sleep has been broken--1-2 hrs at a time, anhedonia, poor appetite, decreased focussed, frequent guilt (blames self for 's affair). Anxiety daily but denies panic. Past Psychiatric History Current Psychiatric Diagnosis: major depressive disorder Outpatient Services: telehealth via [facility]--[facility] couples therapist with [facility] Previous Psych Admissions: none Do You Have Access To A Gun?: No (denies) History of Previous Suicide Attempt: Yes Describe Attempts in the Past: 35 years ago reports getting intoxicated and waking up with a gun next Past Medication Trials: Wellbutrin (didn't work) Allergies Allergy/AdvReac Type Severity Reaction Status Date / Time cat dander Allergy itchy Verified 10/16/19 17:05 eyes, sneezing dog dander Allergy itchy Verified 10/16/19 17:05 eyes, sneezing Home Medications Home Medications Medication Instructions Recorded Confirmed Type Nasal [place] Unknown 1 dose NA UD PRN 10/16/19 10/16/19 History T-Relief Cbd+13 1 dose SC UD 10/16/19 10/16/19 History albuterol sulfate [Ventolin HFA] 2 puff INHALATION Q4 PRN 10/16/19 10/16/19 History aspirin 325 mg PO DAILY 10/16/19 10/16/19 History atorvastatin 40 mg PO QPM 10/16/19 10/16/19 History cetirizine [Zyrtec] 5 mg PO QPM 10/16/19 10/16/19 History cholecalciferol (vitamin D3) 125 mcg PO DAILY 10/16/19 10/16/19 History [Vitamin D3] fexofenadine 180 mg PO DAILY PRN 10/16/19 10/16/19 History insulin NPH isoph U-100 human 50 unit SUBCUT BID 10/16/19 10/16/19 History [Novolin N NPH U-100 Insulin] insulin regular hum U-500 conc 0 unit SUBCUT TIDM 10/16/19 10/16/19 History [Humulin R U-500 (Conc) Kwikpen] levothyroxine 50 mcg PO DAILY 10/16/19 10/16/19 History liraglutide [Victoza 3-Jones] 1.2 mg SUBCUT DAILY 10/16/19 10/16/19 History lisinopril [Zestril] 10 mg PO DAILY 10/16/19 10/16/19 History metformin 1,000 mg PO BID 10/16/19 10/16/19 History sertraline [Zoloft] 100 mg PO DAILY 10/16/19 10/16/19 History sildenafil 100 mg PO DAILY PRN 10/16/19 10/16/19 History Family History depression--mother, sister, brother; both brothers are recovered alcoholics, no family hx of suicide Substance Abuse History occasional social drink Personal History Born In: [place], [place] Highest Grade Completed: Graduate School (master's in Business Admin) Employment Status: Retired (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) Marital Status: (previously /) Number Of Children: 1 dana, 1 son Beliefs That Will Affect Care: None and Spiritual History of Legal Problems: denies Psychological Trauma History Comment: denies Patient History Social History Preferred Language: Romansh Communication Ability: Effective Beliefs That Will Affect Care: None and Spiritual Current Living Situation: Spouse Current Living Situation Comment: lives with Other Information That Helps Us Care for You: Yes ( suffers from PTSD and in janary had an affair) Feels Safe at Home: Yes Safety Concerns: Feels Safe At This Time Smoking Status: Heavy tobacco smoker Tobacco Type: cigarettes ; Cigarettes Per Day: 20 ; Tobacco Cessation Education Requested by Patient: No Hx Alcohol Use: No Hx Substance Use: No Physical Exam Psychiatric: Orientation: alert and oriented x 3 Apperance: appropriately groomed Eye Contact: good eye contact Motor Behavior: no abnormal motor movements Speech: normal rate/rhythm/volume of speech Affect: mood congruent with affect "feeling better today" Thought Process: goal directed thought process Thought Content: reality based without delusions Suicidal Thoughts: denies suicidal thoughts Homicidal Thoughts: denies homicidal thoughts Hallucinations: no auditory hallucinations and no visual hallucinations Cognition: recent memory grossly intact, remote memory grossly intact, attention grossly intact and language grossly intact Estimated Intelligence: consistent with education level Insight: + fair insight Judgement: + fair judgement Vital Signs (Past 24 Hours): Last Vital Signs Temp 36.6 C 10/17/19 11:07 Pulse 65 10/17/19 11:07 Resp 18 10/17/19 11:07 BP 105/68 10/17/19 11:07 Pulse Ox 94 10/17/19 11:07 Review of Systems All systems reviewed & are unremarkable except as noted in HPI & below Results & Data (PS[facility]) Medications Administered Atorvastatin Calcium (Lipitor) 40 mg PO QPM [facility] Stop: 11/15/19 23:33 Last Admin: 10/17/19 02:46 Dose: 40 mg Documented by: [id number] Cetirizine HCl (Zyrtec) 5 mg PO QPM [facility] Stop: 11/15/19 23:33 Last Admin: 10/17/19 02:46 Dose: 5 mg Documented by: [id number] Ezetimibe (Zetia) 10 mg PO QAM [facility] Stop: 11/16/19 10:59 Last Admin: 10/17/19 11:37 Dose: 10 mg Documented by: [id number] Enoxaparin Sodium (Lovenox) 40 mg SQ QAM [facility] Stop: 11/16/19 08:59 Last Admin: 10/17/19 08:37 Dose: 40 mg Documented by: [id number] Famotidine (Pepcid) 10 mg PO BID [facility] Stop: 11/15/19 20:59 Last Admin: 10/17/19 08:37 Dose: 10 mg Documented by: [id number] Admin: 10/17/19 02:46 Dose: 10 mg Documented by: [id number] Fexofenadine HCl (Crystal) 180 mg PO DAILY PRN PRN Reason: allergies Stop: 11/15/19 23:33 Last Admin: 10/17/19 08:37 Dose: 180 mg Documented by: [id number] Insulin Aspart (Novolog Flexpen) 0 units SC ACHS [facility] Stop: 11/16/19 00:59 Last Admin: 10/17/19 08:38 Dose: 3 units Documented by: [id number] Cosigned by: [id number] Admin: 10/17/19 02:50 Dose: Not Given Documented by: [id number] Cosigned by: [id number] Insulin Human NPH (Novolin N Nph) 45 units SC BIDM [facility] Stop: 11/16/19 00:59 Last Admin: 10/17/19 08:39 Dose: 45 units Documented by: [id number] Cosigned by: [id number] Admin: 10/17/19 02:50 Dose: Not Given Documented by: [id number] Levothyroxine Sodium (Synthroid) 50 mcg PO DAILYBB [facility] Stop: 11/16/19 06:29 Last Admin: 10/17/19 06:09 Dose: 50 mcg Documented by: [id number] Lisinopril (Zestril) 10 mg PO DAILY [facility] Stop: 11/16/19 08:59 Last Admin: 10/17/19 08:36 Dose: 10 mg Documented by: [id number] Metoprolol Succinate (Toprol Xl) 25 mg PO QAM [facility] Stop: 11/16/19 10:59 Last Admin: 10/17/19 11:37 Dose: 25 mg Documented by: [id number] Miscellaneous (Remove Nicoderm Patch) 1 ea N/A DAILY@0859 [facility] Stop: 11/16/19 08:58 Last Admin: 10/17/19 08:37 Dose: 1 ea Documented by: [id number] Nicotine (Nicoderm Cq) [address] [facility] Stop: 11/15/19 20:24 Last Admin: 10/17/19 11:37 Dose: 14 mg Documented by: [id number] Admin: 10/17/19 02:46 Dose: 14 mg Documented by: [id number] Sertraline HCl (Zoloft) 100 mg PO DAILY [facility] Stop: 11/16/19 08:59 Last Admin: 10/17/19 08:36 Dose: 100 mg Documented by: [id number] Coding Level of Care Code 59040 U Intl Hosp Care Lvl 2
--- NOTE | 2019-10-17 12:16 | Electrocardiogram Report ---
Test Reason : Blood Pressure : / mmHG Vent. Rate : 073 BPM Atrial Rate : 073 BPM P-R Int : 178 ms QRS Dur : 066 ms QT Int : 382 ms P-R-T Axes : 073 072 090 degrees QTc Int : 420 ms Normal sinus rhythm Normal ECG When compared with ECG of 16-OCT-2019 16:06, (unconfirmed) No significant change was found Confirmed by Pietro Hardin ([id number]) on 10/17/2019 12:15:50 PM Referred By: REFERRED SELF Confirmed By:Pietro Hardin
[2019-10-18] MEDS: LEVOTHYROXINE SODIUM 50 MCG TABLET PO SCH (05:49)
[2019-10-18] MEDS: ENOXAPARIN INJ 40 MG/0.4 ML SYR SQ SCH (07:56)
[2019-10-18] MEDS: NICOTINE 14 MG/24 HR PATCH TD SCH (07:56)
[2019-10-18] MEDS: EZETIMIBE 10 MG TABLET PO SCH (07:56)
[2019-10-18] MEDS: ASPIRIN 81 MG ECTAB PO SCH (07:57)
[2019-10-18] MEDS: METOPROLOL SUCC 25MG EXT REL TAB PO SCH (07:57)
[2019-10-18] MEDS: FAMOTIDINE 10 MG TABLET PO SCH ×2 (07:57→20:14)
[2019-10-18] MEDS: SERTRALINE HCL 100 MG TABLET PO SCH (07:58)
[2019-10-18] MEDS: lisinopriL 10 MG TAB PO SCH (07:58)
[2019-10-18] MEDS: INSULIN HUMAN NPH SC SCH ×2 (08:00→17:23)
[2019-10-18] MEDS: INSULIN ASPART 100 UNITS/ML 3 ML PEN SC SCH ×4 (08:01→20:54)
--- NOTE | 2019-10-18 09:33 | Hospitalist Progress Note ---
Date of Service October 17, 2019 Assessment & Plan (1) Chest pain: Possible GERD Rule out ACS given risk factors DM 2 insulin requiring, BSG elevated No recent hemoglobin A1c on file hyperlipidemia on statin Rx mood disorder, suboptimal with fleeting suicidal ideations AAA, incidental finding on CT read Possible JANET as per patient account ongoing tobacco abuse Chest pain Initiate H2 marv Rx for GERD troponin negative, EKG x2 negative Cardiology consulted - recommend ASA 81 mg (rather than 325), continued atorvastatin, add metoprolol. Echo - pending Remain in hospital for cardiac cath on 10/20/19. Dyslipidemia LDL cholesterol 79 mg/dL on atorvastatin 40mg daily. Add ezetimibe 10 mg daily. Ongoing tobacco use -Currently using nicotine patch -Smoking cessation counseling provided, discussed using 1 800 quit line, free cessation line -Patient currently determined to quit smoking, says previously quit for 11 months DM 2 insulin requiring, BSG elevated Update hemoglobin A1c, lipid profile Basal insulin, ISS BG goal [id number], carb count coverage Depression, suicidal ideations Suicide precautions Psych consult RE depression with suicidality Patient currently off one-on-one supervision Patient states he feels much better now and plans to follow-up with therapist AAA, incidental finding on CT read Outpatient follow-up surveillance imaging for AAA Incidental finding of 3.3 cm abdominal aortic aneurysm on CT. Abdominal aorta with noted diffuse atherosclerosis. Continue aggressive statin therapy as noted above. Repeat surveillance CT or ultrasound in 6 months. Possible JANET as per patient account Outpatient sleep study DVT prophylaxis. Lovenox subcu Full code Patient's family can be reached at following numbers. Ms. Janet Arteaga (), contact #[phone] Mr. Mauri Joshi (son), contact #[phone] Admission and Anticipated Discharge Date Admission Date: October 18, 2019 Subjective Patient seen by cardiology and psychiatry today. Currently he feels much better. Denies any chest pain. Also denies any fevers, chills, shortness of breath, abdominal pain, nausea vomiting. Says that he is somewhat short of breath when he is moving. Patient asked me to update his [id number], Fariha, who is a pharmacist here. Fariha was updated and all questions were answered. Review of Systems Review of Systems: All systems reviewed & are unremarkable except as noted in HPI & below Constitutional: no fever and no chills Respiratory: + dyspnea on exertion; no cough and no dyspnea Cardiovascular: + chest pain (Much improved/resolved); no palpitations Gastrointestinal: no abdominal pain, no nausea and no vomiting Genitourinary: no dysuria Physical Exam Physical Exam: GENERAL: Elderly obese male, pleasant, in no acute distress, occasionally tearful HEENT: Normocephalic, atraumatic, EOMI, PERRL, pink palpebral conjunctivae, no ptosis, moist buccal mucosa NECK : Supple, short neck, no tenderness CHEST : Decreased breath sounds, expiratory wheezes that clear post coughing, no tenderness HEART : RRR, no obvious murmurs ABDOMEN: Some distention, nontender EXTREMITIES : No LE swelling, no LE tenderness, moves extremities spontaneously without difficulty SKIN: Normal color, warm NEUROLOGIC : Alert and oriented x3, answers questions appropriately, no facial asymmetry, speech fluent, motor strength is spontaneously and without difficulty Results & Data Results & Data ([facility]) Vital Signs (Past 12 Hours) Vital Signs Temp Pulse Pulse Resp BP BP Pulse Ox 10/18/19 03:48 36.5 C 65 18 107/64 98 10/18/19 00:00 70 10/17/19 23:28 36.7 C 67 18 101/62 95 (1) Chest pain Chest pain type: unspecified Qualified Code(s): R07.9 - Chest pain, unspecified
--- NOTE | 2019-10-18 09:34 | Hospitalist Progress Note ---
Date of Service October 18, 2019 Assessment & Plan (1) Chest pain: Possible GERD Rule out ACS given risk factors DM 2 insulin requiring, BSG elevated No recent hemoglobin A1c on file hyperlipidemia on statin Rx mood disorder, suboptimal with fleeting suicidal ideations AAA, incidental finding on CT read Possible JANET as per patient account ongoing tobacco abuse Chest pain -Started H2 marv Rx for GERD troponin negative, EKG x2 negative Cardiology consulted - recommend ASA 81 mg (rather than 325), continued atorvastatin, add metoprolol. Echo obtained, there is normal left ventricular wall thickness. LV wall motion is normal. EF 55 to 60%. Diastolic dysfunction, grade 2. There is no significant valvular heart disease. Per cardiology, given significant risk factors, plan to remain in hospital for cardiac cath on 10/20/19. Dyslipidemia LDL cholesterol 79 mg/dL on atorvastatin 40mg daily. Add ezetimibe 10 mg daily. Ongoing tobacco use -Currently using nicotine patch -Smoking cessation counseling provided, discussed using 1 800 quit line, free cessation line -Patient currently determined to quit smoking, says previously quit for 11 months DM 2 insulin requiring, BSG elevated Update hemoglobin A1c, lipid profile Basal insulin, ISS BG goal [id number], carb count coverage Depression, suicidal ideations Suicide precautions Psych consult RE depression with suicidality Patient currently off one-on-one supervision Patient states he feels much better now and plans to follow-up with therapist AAA, incidental finding on CT read Outpatient follow-up surveillance imaging for AAA Incidental finding of 3.3 cm abdominal aortic aneurysm on CT. Abdominal aorta with noted diffuse atherosclerosis. Continue aggressive statin therapy as noted above. Repeat surveillance CT or ultrasound in 6 months. Possible JANET as per patient account Outpatient sleep study DVT prophylaxis. Lovenox subcu Full code Patient's family can be reached at following numbers. Ms. Janet Arteaga (), contact #[phone] Mr. Mauri Joshi (son), contact #[phone] Admission and Anticipated Discharge Date Admission Date: October 18, 2019 Subjective No acute events overnight. Patient currently denies any chest pain. Says he gets little short of breath when he gets out of bed, attributes this to being deconditioned. Also denies any fevers, chills, abdominal pain, nausea vomiting. Counseled patient on smoking cessation, provided him with 1 800 quit now number, free smoking cessation line. Advised patient to call them even while inpatient to start the process. He is currently using using nicotine patch and he is determined to quit smoking. Patient certainly in better mindset since admission. Says that he has lots of support from his family, he is close to his [id number], Fariha, who I contacted and updated. Patient recently moved here from [place]. Review of Systems Review of Systems: All systems reviewed & are unremarkable except as noted in HPI & below As per HPI, possible JANET symptoms as per patient, all 10 systems reviewed, all other ROS negative Constitutional: no fever and no chills Respiratory: + dyspnea on exertion; no cough and no dyspnea Cardiovascular: + chest pain (Much improved/resolved); no palpitations Gastrointestinal: no abdominal pain, no nausea and no vomiting Genitourinary: no dysuria Physical Exam Physical Exam: GENERAL: Elderly obese male, pleasant, in no acute distress HEENT: Normocephalic, atraumatic, EOMI, PERRL, pink palpebral conjunctivae, no ptosis, moist buccal mucosa NECK : Supple, short neck, no tenderness CHEST : Somewhat decreased breath sounds, but overall clear to auscultation bilaterally, no wheezing rhonchi or crackles HEART : RRR, no obvious murmurs ABDOMEN: Normal bowel sounds, soft, obese, nontender to palpation EXTREMITIES : No LE swelling, no LE tenderness, moves extremities spontaneously without difficulty SKIN: Warm, dry, well perfused NEUROLOGIC : Alert and oriented x3, answers questions appropriately, no facial asymmetry, speech fluent, moves extremities spontaneously and without difficulty Results & Data Results & Data ([facility]) Vital Signs (Past 12 Hours) Vital Signs Temp Pulse Pulse Resp BP BP Pulse Ox 10/18/19 08:35 36.4 C L 60 22 112/74 97 10/18/19 03:48 36.5 C 65 18 107/64 98 10/18/19 00:00 70 10/17/19 23:28 36.7 C 67 18 101/62 95 Laboratory Results 10/18/19 10/17/19 10/17/19 Range/Units 07:45 20:33 16:19 POC Glucose 97 101 H 120 H (70-99) mg/dl 10/17/19 Range/Units 11:21 POC Glucose 136 H (70-99) mg/dl Medications Administered Current Inpatient Medications Acetaminophen (Tylenol) 650 mg PO Q4H PRN PRN Reason: Pain or Fever Stop: 11/15/19 23:33 Aspirin (Ecotrin Ectab) 81 mg PO QAM [facility] Stop: 11/17/19 08:59 Last Admin: 10/18/19 07:57 Dose: 81 mg Documented by: Atorvastatin Calcium (Lipitor) 40 mg PO QPM [facility] Stop: 11/15/19 23:33 Last Admin: 10/17/19 21:25 Dose: 40 mg Documented by: Cetirizine HCl (Zyrtec) 5 mg PO QPM [facility] Stop: 11/15/19 23:33 Last Admin: 10/17/19 21:25 Dose: 5 mg Documented by: Dextrose (Dextrose 50%) 25 - 50 ml IV UD PRN; Protocol PRN Reason: Hypoglycemia Protocol Stop: 11/15/19 23:33 [facility]) [facility] Stop: 11/16/19 10:59 Last Admin: 10/18/19 07:56 Dose: 10 mg Documented by: Enoxaparin Sodium (Lovenox) 40 mg SQ QAM [facility] Stop: 11/16/19 08:59 Last Admin: 10/18/19 07:56 Dose: 40 mg Documented by: Famotidine (Pepcid) 10 mg PO BID [facility] Stop: 11/15/19 20:59 Last Admin: 10/18/19 07:57 Dose: 10 mg Documented by: Fexofenadine HCl (Crystal) 180 mg PO DAILY PRN PRN Reason: allergies Stop: 11/15/19 23:33 Last Admin: 10/17/19 08:37 Dose: 180 mg Documented by: Glucagon (Glucagen) 1 mg SQ UD PRN; Protocol PRN Reason: Hypoglycemia Protocol Stop: 11/15/19 23:33 Glucose (Dex4 Glucose) 4 - 8 tabs PO UD PRN; Protocol PRN Reason: Hypoglycemia Protocol Stop: 11/15/19 23:33 Glucose (Glucose 40%) 15 - 30 gm PO UD PRN; Protocol PRN Reason: Hypoglycemia Protocol Stop: 11/15/19 23:33 Promethazine HCl 12.5 mg/ (Sodium Chloride) 50.5 mls @ 202 mls/hr IV Q6H PRN PRN Reason: Nausea And Vomiting Stop: 11/15/19 23:33 Insulin Aspart (Novolog Flexpen) 0 units SC ACHS [facility] Stop: 11/16/19 00:59 Last Admin: 10/18/19 08:01 Dose: Not Given Documented by: Insulin Human NPH (Novolin N Nph) 45 units SC BIDM [facility] Stop: 11/16/19 00:59 Last Admin: 10/18/19 08:00 Dose: 45 units Documented by: Levothyroxine Sodium (Synthroid) 50 mcg PO DAILYBB [facility] Stop: 11/16/19 06:29 Last Admin: 10/18/19 05:49 Dose: 50 mcg Documented by: Lisinopril (Zestril) 10 mg PO DAILY [facility] Stop: 11/16/19 08:59 Last Admin: 10/18/19 07:58 Dose: 10 mg Documented by: Metoprolol Succinate (Toprol Xl) 25 mg PO QAM [facility] Stop: 11/16/19 10:59 Last Admin: 10/18/19 07:57 Dose: 25 mg Documented by: Miscellaneous (Remove Nicoderm Patch) 1 ea N/A DAILY@0859 [facility] Stop: 11/16/19 08:58 Last Admin: 10/18/19 07:57 Dose: 1 ea Documented by: Miscellaneous (Carbohydrates For Hypoglycemia) 15 - 30 gm PO UD PRN PRN Reason: Hypoglycemia Protocol Stop: 11/15/19 23:33 Morphine Sulfate (Morphine Sulfate) 4 mg IV Q4H PRN PRN Reason: Pain Stop: 10/30/19 23:33 Nicotine (Nicoderm Cq) 14 mg TD QAM [facility] Stop: 11/15/19 20:24 Last Admin: 10/18/19 07:56 Dose: 14 mg Documented by: Nitroglycerin (Nitrostat) 0.4 mg SL UD PRN PRN Reason: Chest Pain Stop: 11/15/19 23:33 Sertraline HCl (Zoloft) 100 mg PO DAILY [facility] Stop: 11/16/19 08:59 Last Admin: 10/18/19 07:58 Dose: 100 mg Documented by: Tramadol HCl (Ultram) 25 - 50 mg PO Q4H PRN PRN Reason: Pain Stop: 11/15/19 23:33 (1) Chest pain Chest pain type: unspecified Qualified Code(s): R07.9 - Chest pain, unspecified
--- NOTE | 2019-10-18 11:00 | Cardiology Progress Note ---
Date of Service October 18, 2019 Assessment & Plan (1) Chest pain: (2) SVT (supraventricular tachycardia): (3) Dyslipidemia: (4) AAA (abdominal aortic aneurysm): EKG , serial troponin levels within normal limits. Resting wall motion , LVEF normal on echo. Given significant risk factors, cardiac catheterization felt to be next best step. Continue ASA 81, Toprol, Statin. Ordered labs for am of 10/19, NPO after MN Saturday for Cath 10/19. Follow up imaging of 3.3 cm AAA in [address] Rubi bangura 10/18. I will return 10/19. (5) Depression: Psych input noted and appreciated. 1:1 supervision discontinued. Subjective CC: follow up chest pain Subjective: Patient feeling better. No chest pain. Mood improved. Telemetry reveals SR. Physical Exam Physical Exam: Temp Pulse Resp BP Pulse Ox 36.4 C L 70 22 112/74 97 10/18/19 08:35 10/18/19 10:13 10/18/19 08:35 10/18/19 08:35 10/18/19 08:35 Constitutional: WD/WN, vitals as above well nourished Respiratory: normal respiratory effort, lungs clear to auscultation Cardiovascular: RRR, no murmur, no edema Gastrointestinal (Abdomen): normal bowel sounds, soft, nontender, no hepatosp lenomegaly Neurologic: PERRL, EOMI, accommodation nl, no face palsy, no dysarthria Results & Data Vital Signs (Past 12 Hours) Vital Signs Temp Pulse Pulse Resp BP BP Pulse Ox 10/18/19 10:13 70 10/18/19 08:35 36.4 C L 60 22 112/74 97 10/18/19 03:48 36.5 C 65 18 107/64 98 10/18/19 00:00 70 10/17/19 23:28 36.7 C 67 18 101/62 95 Laboratory Results Intake and Output 10/17/19 10/18/19 10/18/19 22:59 06:59 14:59 Intake Total 360 / 2080 240 / 2080 Balance 360 / 0 240 / 2080 Intake: Oral 360 / 1080 240 / 1080 Other: Weight 96.1 kg (1) Chest pain Chest pain type: unspecified Qualified Code(s): R07.9 - Chest pain, unspecified (2) Depression Active/Remission status: currently active Depression Type: major depressive disorder Major depression episode severity: severe Major depression recur rence: recurrent Psychotic features: without psychotic features Qualified Code(s): F33.2 - Major depressive disorder, recurrent severe without psychotic features
[2019-10-18] MEDS: ATORVASTATIN 40 MG TAB PO SCH (20:13)
[2019-10-18] MEDS: CETIRIZINE HCL 10 MG TABLET PO SCH (20:13)
[2019-10-19] MEDS: LEVOTHYROXINE SODIUM 50 MCG TABLET PO SCH (05:39)
[2019-10-19] MEDS: EZETIMIBE 10 MG TABLET PO SCH (09:21)
[2019-10-19] MEDS: FAMOTIDINE 10 MG TABLET PO SCH ×2 (09:21→22:15)
[2019-10-19] MEDS: ASPIRIN 81 MG ECTAB PO SCH (09:21)
[2019-10-19] MEDS: SERTRALINE HCL 100 MG TABLET PO SCH (09:21)
[2019-10-19] MEDS: NICOTINE 14 MG/24 HR PATCH TD SCH (09:21)
[2019-10-19] MEDS: lisinopriL 10 MG TAB PO SCH (09:21)
[2019-10-19] MEDS: METOPROLOL SUCC 25MG EXT REL TAB PO SCH (09:21)
[2019-10-19] MEDS: INSULIN ASPART 100 UNITS/ML 3 ML PEN SC SCH ×4 (09:22→22:16)
[2019-10-19] MEDS: INSULIN HUMAN NPH SC SCH ×2 (09:45→16:56)
--- NOTE | 2019-10-19 10:38 | Hospitalist Progress Note ---
Date of Service October 19, 2019 Assessment & Plan (1) Chest pain: Possible GERD Rule out ACS given risk factors DM 2 insulin requiring, BSG elevated No recent hemoglobin A1c on file hyperlipidemia on statin Rx mood disorder, suboptimal with fleeting suicidal ideations AAA, incidental finding on CT read Possible JANET as per patient account ongoing tobacco abuse Chest pain -Started H2 marv Rx for GERD troponin negative, EKG x2 negative Cardiology consulted - recommend ASA 81 mg (rather than 325), continued atorvastatin, add metoprolol. Echo obtained, there is normal left ventricular wall thickness. LV wall motion is normal. EF 55 to 60%. Diastolic dysfunction, grade 2. There is no significant valvular heart disease. Per cardiology, given significant risk factors, plan to remain in hospital for cardiac cath on 10/20/19. Dyslipidemia LDL cholesterol 79 mg/dL on atorvastatin 40mg daily. Add ezetimibe 10 mg daily. Ongoing tobacco use -Currently using nicotine patch -Smoking cessation counseling provided, discussed using 1 800 quit line, free cessation line -Patient currently determined to quit smoking, says previously quit for 11 months DM 2 insulin requiring, BSG elevated Update hemoglobin A1c, lipid profile Basal insulin, ISS BG goal [id number], carb count coverage Depression, suicidal ideations Suicide precautions Psych consult RE depression with suicidality Patient currently off one-on-one supervision Patient states he feels much better now and plans to follow-up with therapist Recently Zoloft dose was increased to 100 mg, will continue AAA, incidental finding on CT read Outpatient follow-up surveillance imaging for AAA Incidental finding of 3.3 cm abdominal aortic aneurysm on CT. Abdominal aorta with noted diffuse atherosclerosis. Continue aggressive statin therapy as noted above. Repeat surveillance CT or ultrasound in 6 months. Possible JANET as per patient account Outpatient sleep study DVT prophylaxis. Lovenox subcu Full code Patient's family can be reached at following numbers. Ms. Janet Arteaga (), contact #[phone] Mr. Mauri Joshi (son), contact #[phone] Admission and Anticipated Discharge Date Admission Date: October 18, 2019 Subjective Patient says that he is not having a good day today, he is very emotional, had some arguments with his family. After that he developed some pain radiating to his left arm again. Currently feels well, denies any chest pain or shortness of breath. Also denies any fevers or chills, abdominal pain, nausea or vomiting. Review of Systems Review of Systems: All systems reviewed & are unremarkable except as noted in HPI & below Constitutional: no fever and no chills Respiratory: no cough and no dyspnea Cardiovascular: no chest pain (Rating to his left arm, then resolved) Gastrointestinal: no abdominal pain, no nausea and no vomiting Physical Exam Physical Exam: GENERAL: Elderly obese male, pleasant, in no acute distress HEENT: Normocephalic, atraumatic, EOMI, PERRL, pink palpebral conjunctivae, no ptosis, moist buccal mucosa NECK : Supple, short neck, no tenderness CHEST : Somewhat decreased breath sounds, but overall clear to auscultation bilaterally, no wheezing rhonchi or crackles HEART : RRR, no obvious murmurs ABDOMEN: Normal bowel sounds, soft, obese, nontender to palpation EXTREMITIES : No LE swelling, no LE tenderness, moves extremities spontaneously without difficulty SKIN: Warm, dry, well perfused NEUROLOGIC : Alert and oriented x3, answers questions appropriately, no facial asymmetry, speech fluent, moves extremities spontaneously and without difficulty Results & Data Results & Data ([facility]) Vital Signs (Past 12 Hours) Vital Signs Temp Pulse Pulse Resp BP Pulse Ox 10/19/19 09:00 60 10/19/19 07:22 36.6 C 60 17 104/66 97 10/19/19 03:24 36.6 C 62 17 108/68 96 10/18/19 23:15 63 10/18/19 23:13 36.8 C 68 18 112/68 96 Laboratory Results 10/19/19 10/18/19 10/18/19 Range/Units 07:40 20:27 16:44 POC Glucose 119 H 192 H 138 H (70-99) mg/dl 10/18/19 Range/Units 11:24 POC Glucose 156 H (70-99) mg/dl Medications Administered Current Inpatient Medications Acetaminophen (Tylenol) 650 mg PO Q4H PRN PRN Reason: Pain or Fever Stop: 11/15/19 23:33 Last Admin: 10/19/19 05:39 Dose: 650 mg Documented by: Aspirin (Ecotrin Ectab) [address] [facility] Stop: 11/17/19 08:59 Last Admin: 10/19/19 09:21 Dose: 81 mg Documented by: Atorvastatin Calcium (Lipitor) [address] [facility] Stop: 11/15/19 23:33 Last Admin: 10/18/19 20:13 Dose: 40 mg Documented by: Cetirizine HCl (Zyrtec) [address] [facility] Stop: 11/15/19 23:33 Last Admin: 10/18/19 20:13 Dose: 5 mg Documented by: Dextrose (Dextrose 50%) 25 - 50 ml IV UD PRN; Protocol PRN Reason: Hypoglycemia Protocol Stop: 11/15/19 23:33 Ez[facility] ([facility]ia) [facility] [place] Stop: 11/16/19 10:59 Last Admin: 10/19/19 09:21 Dose: 10 mg Documented by: Enoxaparin Sodium (Lovenox) 40 [facility] SQ [facility] [place] Stop: 11/16/19 08:59 Last Admin: 10/18/19 07:56 Dose: 40 mg Documented by: Famotidine (Pepcid) [address] [facility] Stop: 11/15/19 20:59 Last Admin: 10/19/19 09:21 Dose: 10 mg Documented by: Fexofenadine HCl (Crystal) 180 mg PO DAILY PRN PRN Reason: allergies Stop: 11/15/19 23:33 Last Admin: 10/17/19 08:37 Dose: 180 mg Documented by: Glucagon (Glucagen) 1 mg SQ UD PRN; Protocol PRN Reason: Hypoglycemia Protocol Stop: 11/15/19 23:33 Glucose (Dex4 Glucose) 4 - 8 tabs PO UD PRN; Protocol PRN Reason: Hypoglycemia Protocol Stop: 11/15/19 23:33 Glucose (Glucose 40%) 15 - 30 gm PO UD PRN; Protocol PRN Reason: Hypoglycemia Protocol Stop: 11/15/19 23:33 Promethazine HCl 12.5 mg/ (Sodium Chloride) 50.5 mls @ 202 mls/hr IV Q6H PRN PRN Reason: Nausea And Vomiting Stop: 11/15/19 23:33 Insulin Aspart (Novolog Flexpen) [address] [facility] Stop: 11/16/19 00:59 Last Admin: 10/19/19 09:22 Dose: 2 units Documented by: Insulin Human NPH (Novolin N Nph) [address] [facility] Stop: 11/16/19 00:59 Last Admin: 10/19/19 09:45 Dose: 45 units Documented by: Levothyroxine Sodium (Synthroid) [address] [facility] Stop: 11/16/19 06:29 Last Admin: 10/19/19 05:39 Dose: 50 mcg Documented by: Lisinopril (Zestril) [address] [facility] Stop: 11/16/19 08:59 Last Admin: 10/19/19 09:21 Dose: 10 mg Documented by: Metoprolol Succinate (Toprol Xl) [address] [facility] Stop: 11/16/19 10:59 Last Admin: 10/19/19 09:21 Dose: 25 mg Documented by: Miscellaneous (Remove Nicoderm Patch) 1 ea N/A DAILY@0859 [facility] Stop: 11/16/19 08:58 Last Admin: 10/19/19 09:56 Dose: 1 ea Documented by: Miscellaneous (Carbohydrates For Hypoglycemia) 15 - 30 gm PO UD PRN PRN Reason: Hypoglycemia Protocol Stop: 11/15/19 23:33 Morphine Sulfate (Morphine Sulfate) 4 mg IV Q4H PRN PRN Reason: Pain Stop: 10/30/19 23:33 Nicotine (Nicoderm Cq) 14 [facility] [place] Stop: 11/15/19 20:24 Last Admin: 10/19/19 09:21 Dose: 14 mg Documented by: Nitroglycerin (Nitrostat) 0.4 mg SL UD PRN PRN Reason: Chest Pain Stop: 11/15/19 23:33 Sertraline HCl (Zoloft) [address] [facility] Stop: 11/16/19 08:59 Last Admin: 10/19/19 09:21 Dose: 100 mg Documented by: Tramadol HCl (Ultram) 25 - 50 mg PO Q4H PRN PRN Reason: Pain Stop: 11/15/19 23:33 (1) Chest pain Chest pain type: unspecified Qualified Code(s): R07.9 - Chest pain, unspecified
--- NOTE | 2019-10-19 10:57 | Cardiology Progress Note ---
Date of Service October 19, 2019 Assessment & Plan (1) Chest pain: (2) AAA (abdominal aortic aneurysm): (3) Depression: (4) Dyslipidemia: The patient is willing to proceed with cardiac catheterization tomorrow. I have explained the risk, benefit and intent to the cardiac catheterization to him. He will be made n.p.o. after midnight and the plan is to proceed tomorrow morning. Subjective The patient was emotional during my evaluation today. Review of Systems Review of Systems: All systems reviewed & are unremarkable except as noted in HPI & below Nothing additional to add. Physical Exam Physical Exam: General: no acute distress and stated age Head: normocephalic, no masses, lesions, tenderness or abnormalities Eyes: conjunctiva are pink and non-injected, sclera clear Neck: supple, no adenopathy, no bruits, normal jugular venous pulse, no hepatojugular reflux Chest: normal shape and normal respiratory effort Lungs: clear to auscultation and percussion Cardiac Exam: - regular rate & rhythm, no murmurs gallops or rubs - normal S1, normal S2 Pulses: 2(+) throughout Abdomen: abdomen soft, non-tender, no abnormal masses and no hepatosplenomegaly Musculoskeletal: no gait disturbance, no joint inflammation, no deforming arthritis Extremities: no edema and no cyanosis Neuro: grossly normal exam Results & Data Vital Signs (Past 12 Hours) Vital Signs Temp Pulse Pulse Resp BP Pulse Ox 10/19/19 09:00 60 10/19/19 07:22 36.6 C 60 17 104/66 97 10/19/19 03:24 36.6 C 62 17 108/68 96 10/18/19 23:15 63 10/18/19 23:13 36.8 C 68 18 112/68 96 Laboratory Results Laboratory Results - last 24 hr 10/18/19 10/18/19 10/18/19 11:24 16:44 20:27 POC Glucose 156 H 138 H 192 H 10/19/19 07:40 POC Glucose 119 H Medications Administered Current Inpatient Medications Acetaminophen (Tylenol) 650 mg PO Q4H PRN PRN Reason: Pain or Fever Stop: 11/15/19 23:33 Last Admin: 10/19/19 05:39 Dose: 650 mg Documented by: Aspirin (Ecotrin Ectab) [facility] [place] Stop: 11/17/19 08:59 Last Admin: 10/19/19 09:21 Dose: 81 mg Documented by: Atorvastatin Calcium (Lipitor) 40 mg PO QPM [facility] Stop: 11/15/19 23:33 Last Admin: 10/18/19 20:13 Dose: 40 mg Documented by: Cetirizine HCl (Zyrtec) 5 mg PO QPM [facility] Stop: 11/15/19 23:33 Last Admin: 10/18/19 20:13 Dose: 5 mg Documented by: Dextrose (Dextrose 50%) 25 - 50 ml IV UD PRN; Protocol PRN Reason: Hypoglycemia Protocol Stop: 11/15/19 23:33 Ezetimibe (Zetia) 10 mg PO QAM [facility] [place] Stop: 11/16/19 10:59 Last Admin: 10/19/19 09:21 Dose: 10 mg Documented by: Enoxaparin Sodium (Lovenox) 40 mg SQ QAM [facility] [place] Stop: 11/16/19 08:59 Last Admin: 10/18/19 07:56 Dose: 40 mg Documented by: Famotidine (Pepcid) 10 mg PO BID [facility] [place] Stop: 11/15/19 20:59 Last Admin: 10/19/19 09:21 Dose: 10 mg Documented by: Fexofenadine HCl (Crystal) 180 mg PO DAILY PRN PRN Reason: allergies Stop: 11/15/19 23:33 Last Admin: 10/17/19 08:37 Dose: 180 mg Documented by: Glucagon (Glucagen) 1 mg SQ UD PRN; Protocol PRN Reason: Hypoglycemia Protocol Stop: 11/15/19 23:33 Glucose (Dex4 Glucose) 4 - 8 tabs PO UD PRN; Protocol PRN Reason: Hypoglycemia Protocol Stop: 11/15/19 23:33 Glucose (Glucose 40%) 15 - 30 gm PO UD PRN; Protocol PRN Reason: Hypoglycemia Protocol Stop: 11/15/19 23:33 Promethazine HCl 12.5 mg/ (Sodium Chloride) 50.5 mls @ 202 mls/hr IV Q6H PRN PRN Reason: Nausea And Vomiting Stop: 11/15/19 23:33 Sodium Chloride (Nss 1000ml) 1,000 mls @ 95 mls/hr IV .[id number] [facility] Stop: 11/19/19 00:00 Insulin Aspart (Novolog Flexpen) 0 units SC ACHS [facility] Stop: 11/16/19 00:59 Last Admin: 10/19/19 09:22 Dose: 2 units Documented by: Insulin Human NPH (Novolin N Nph) 45 units SC BIDM [facility] [place] Stop: 11/16/19 00:59 Last Admin: 10/19/19 09:45 Dose: 45 units Documented by: Levothyroxine Sodium (Synthroid) 50 mcg PO DAILYBB [facility] [place] Stop: 11/16/19 06:29 Last Admin: 10/19/19 05:39 Dose: 50 mcg Documented by: Lisinopril (Zestril) 10 mg PO DAILY [facility] [place] Stop: 11/16/19 08:59 Last Admin: 10/19/19 09:21 Dose: 10 mg Documented by: Metoprolol Succinate (Toprol Xl) 25 mg PO QAM [facility] [place] Stop: 11/16/19 10:59 Last Admin: 10/19/19 09:21 Dose: 25 mg Documented by: Miscellaneous (Remove Nicoderm Patch) 1 ea N/A DAILY@0859 [facility] Stop: 11/16/19 08:58 Last Admin: 10/19/19 09:56 Dose: 1 ea Documented by: Miscellaneous (Carbohydrates For Hypoglycemia) 15 - 30 gm PO UD PRN PRN Reason: Hypoglycemia Protocol Stop: 11/15/19 23:33 Morphine Sulfate (Morphine Sulfate) 4 mg IV Q4H PRN PRN Reason: Pain Stop: 10/30/19 23:33 Nicotine (Nicoderm Cq) 14 mg TD QAM [facility] [place] Stop: 11/15/19 20:24 Last Admin: 10/19/19 09:21 Dose: 14 mg Documented by: Nitroglycerin (Nitrostat) 0.4 mg SL UD PRN PRN Reason: Chest Pain Stop: 11/15/19 23:33 Sertraline HCl (Zoloft) 100 mg PO DAILY [facility] [place] Stop: 11/16/19 08:59 Last Admin: 10/19/19 09:21 Dose: 100 mg Documented by: Tramadol HCl (Ultram) 25 - 50 mg PO Q4H PRN PRN Reason: Pain Stop: 11/15/19 23:33 (1) Chest pain Chest pain type: unspecified Qualified Code(s): R07.9 - Chest pain, un specified (2) Depression Active/Remission status: currently active Depression Type: major depressive disorder Major depression episode severity: severe Major depression recurrence: recurrent Psychotic features: without psychotic features Qualified Code(s): F33.2 - Major depressive disorder, recurrent severe without psychotic features
[2019-10-19 11:27] LABS: Hematocrit (blood only) 46.9 % (42-52); Hemoglobin 16.3 g/dL (14.0-18.0); Mean Corpuscular Hemoglobin 32.4 pg (25-34); Mean Corpuscular Hgb Conc 34.8 g/dL (32-36); Mean Corpuscular Volume 93.2 fL (80-100); Mean Platelet Volume 10.5 fL (7.4-10.4); Platelet Count 169 K/uL (130-400); RDW Standard Deviation 44.1 fL (36.4-46.3); Red Blood Count 5.03 M/uL (4.7-6.1); White Blood Count 9.16 K/uL (4.8-10.8)
[2019-10-19 11:52] LABS: BUN Creatinine Ratio 16.8 (10-20); Calcium 9.2 mg/dl (8.5-10.1); Creatinine Clr Calc Pharmacy 77.9 ml/min; Est GFR (African American) 81.2; Est GFR (Non-African American) 70.1
[2019-10-19] MEDS: ENOXAPARIN INJ 40 MG/0.4 ML SYR SQ SCH (12:13)
[2019-10-19] MEDS: ATORVASTATIN 40 MG TAB PO SCH (22:15)
[2019-10-19] MEDS: CETIRIZINE HCL 10 MG TABLET PO SCH (22:16)
[2019-10-20] MEDS: SODIUM CHLORIDE 0.9% 1000ML 1,000 ML IV SCH ×2 (00:52→11:52)
[2019-10-20] MEDS: LEVOTHYROXINE SODIUM 50 MCG TABLET PO SCH (06:27)
[2019-10-20 06:51] LABS: Basophils # (auto) 0.05 K/uL (0-0.2); Basophils % (auto) 0.6 %; Eosinophils % (auto) 2.4 %; Hematocrit (blood only) 47.1 % (42-52); Hemoglobin 16.5 g/dL (14.0-18.0); Immature Granulocytes # (auto) 0.02 K/uL (0.00-0.02); Immature Granulocytes % (auto) 0.2 %; Lymphocytes # (auto) 2.61 K/uL (1.2-3.4); Lymphocytes % (auto) 30.9 %; Mean Corpuscular Hemoglobin 32.9 pg (25-34); Mean Corpuscular Volume 93.8 fL (80-100); Mean Platelet Volume 10.1 fL (7.4-10.4); Monocytes % (auto) 11.8 %; Neutrophils # (auto) 4.56 K/uL (1.4-6.5); Neutrophils % (auto) 54.1 %; Platelet Count 147 K/uL (130-400); RDW Coefficient of Variation 12.9 % (11.5-14.5); RDW Standard Deviation 44.3 fL (36.4-46.3); Red Blood Count 5.02 M/uL (4.7-6.1); White Blood Count 8.44 K/uL (4.8-10.8)
[2019-10-20 07:32] LABS: BUN Creatinine Ratio 14.1 (10-20); Calcium 9.5 mg/dl (8.5-10.1); Creatinine Clr Calc Pharmacy 75.4 ml/min; Est GFR (African American) 78.6; Est GFR (Non-African American) 67.8
--- NOTE | 2019-10-20 08:44 | Hospitalist Progress Note ---
Date of Service October 20, 2019 Assessment & Plan (1) Chest pain: Chest pain troponin negative, EKG x2 negative Cardiology consulted - recommend ASA 81 mg (rather than 325), continued atorvastatin, add metoprolol. Echo obtained, there is normal left ventricular wall thickness. LV wall motion is normal. EF 55 to 60%. Diastolic dysfunction, grade 2. There is no significant valvular heart disease. Per cardiology recommendation, given significant risk factors, pt underwent cardiac cath today 10/20/19, which showed moderate nonobstructive disease. Per cardiology patient is safe for discharge, recommend to add metoprolol succinate 25 mg daily and Zetia 10 mg daily to his medications. Follow-up with cardiology in 1 to 2 months Dyslipidemia LDL cholesterol 79 mg/dL on atorvastatin 40mg daily. Add ezetimibe 10 mg daily. Ongoing tobacco use -Currently using nicotine patch -Smoking cessation counseling provided, discussed using 1 800 quit line, free cessation line -Patient currently determined to quit smoking, says previously quit for 11 months DM 2 insulin requiring, BSG elevated Update hemoglobin A1c, lipid profile Basal insulin, ISS BG goal [id number], carb count coverage Depression, suicidal ideations Suicide precautions Psych consult RE depression with suicidality Patient currently off one-on-one supervision Patient states he feels much better now and plans to follow-up with therapist Recently Zoloft dose was increased to 100 mg, will continue AAA, incidental finding on CT read Outpatient follow-up surveillance imaging for AAA Incidental finding of 3.3 cm abdominal aortic aneurysm on CT. Abdominal aorta with noted diffuse atherosclerosis. Continue aggressive statin therapy as noted above. Repeat surveillance CT or ultrasound in 6 months. Possible JANET as per patient account Outpatient sleep study DVT prophylaxis. Lovenox subcu Full code Patient's family can be reached at following numbers. Ms. Janet Arteaga (), contact #[phone] Mr. Mauri Joshi (son), contact #[phone] Admission and Anticipated Discharge Date Admission Date: October 18, 2019 Subjective Patient is status post cardiac cath earlier today. Says he feels well, denies any chest pain, shortness of breath, palpitations. Telemetry reviewed as of this morning, sinus rhythm noted on telemetry. 2 brief salvos of paroxysmal supraventricular tachycardia recorded since admission. A.m. serum potassium level mildly elevated. Lisinopril placed on hold. Receiving IV normal saline in anticipation of cardiac catheterization. Evaluated by cardiology, safe for discharge after post cardiac cath recovery. Recommend to add metoprolol succinate and Zetia to his regimen. Plan to follow- up with cardiology in 1 to 2 months. Review of Systems Review of Systems: All systems reviewed & are unremarkable except as noted in HPI & below Constitutional: no fever and no chills Respiratory: no cough and no dyspnea Cardiovascular: no chest pain and no palpitations Gastrointestinal: no abdominal pain, no nausea and no vomiting Physical Exam Physical Exam: GENERAL: Elderly obese male, pleasant, in no acute distress HEENT: Normocephalic, atraumatic, EOMI, PERRL, pink palpebral conjunctivae, no ptosis, moist buccal mucosa NECK : Supple, short neck, no tenderness CHEST : Somewhat decreased breath sounds, but overall clear to auscultation bilaterally, no wheezing rhonchi or crackles HEART : RRR, no obvious murmurs ABDOMEN: Normal bowel sounds, soft, obese, nontender to palpation EXTREMITIES : No LE swelling, no LE tenderness, moves extremities spontaneously without difficulty SKIN: Warm, dry, well perfused NEUROLOGIC : Alert and oriented x3, answers questions appropriately, no facial asymmetry, speech fluent, moves extremities spontaneously and without difficulty Results & Data Results & Data ([facility]) Vital Signs (Past 12 Hours) Vital Signs Temp Pulse Pulse Pulse Resp BP BP 10/20/19 08:00 59 L 10/20/19 07:22 36.5 C 58 L 18 117/77 10/20/19 04:42 36.4 C L 57 L 16 103/64 10/20/19 00:00 36.7 C 77 60 17 101/58 L Pulse Ox 10/20/19 08:00 10/20/19 07:22 97 10/20/19 04:42 97 10/20/19 00:00 95 Laboratory Results 10/20/19 10/20/19 10/20/19 Range/Units 07:37 07:35 07:17 WBC (4.8-10.8) K/uL RBC (4.7-6.1) M/uL Hgb (14.0-18.0) g/dL Hct (42-52) % MCV (80-100) fL MCH (25-34) pg MCHC (32-36) g/dL RDW Std Deviation (36.4-46.3) fL RDW Coeff of August (11.5-14.5) % Plt Count (130-400) K/uL MPV (7.4-10.4) fL Immature Gran % (Auto) % Neut % (Auto) % Lymph % (Auto) % Clare % (Auto) % Eos % (Auto) % Baso % (Auto) % Immature Gran # (Auto) (0.00-0.02) K/uL Neut # (Auto) (1.4-6.5) K/uL Lymph # (Auto) (1.2-3.4) K/uL Clare # (Auto) (0.11-0.59) K/uL Eos # (Auto) (0-0.5) K/uL Baso # (Auto) (0-0.2) K/uL Sodium (136-145) mmol/L Potassium 5.2 H 5.0 (3.5-5.1) mmol/L Chloride (98-107) mmol/L Carbon Dioxide (21-32) mmol/L Anion Gap (3-11) BUN (7-18) mg/dl Creatinine (0.6-1.4) mg/dl Est Cr Clr Drug Dosing ml/min Est GFR ( Amer) Est GFR (Non-Af Amer) BUN/Creatinine Ratio (10-20) Glucose (70-99) mg/dl POC Glucose 121 H (70-99) mg/dl Calcium (8.5-10.1) mg/dl Magnesium (1.8-2.4) mg/dl 10/20/19 10/20/19 10/19/19 Range/Units 06:41 06:41 21:48 WBC 8.44 (4.8-10.8) K/uL RBC 5.02 (4.7-6.1) M/uL Hgb 16.5 (14.0-18.0) g/dL Hct 47.1 (42-52) % MCV 93.8 (80-100) fL MCH 32.9 (25-34) pg MCHC 35.0 (32-36) g/dL RDW Std Deviation 44.3 (36.4-46.3) fL RDW Coeff of August 12.9 (11.5-14.5) % Plt Count 147 (130-400) K/uL MPV 10.1 (7.4-10.4) fL Immature Gran % (Auto) 0.2 % Neut % (Auto) 54.1 % Lymph % (Auto) 30.9 % Clare % (Auto) 11.8 % Eos % (Auto) 2.4 % Baso % (Auto) 0.6 % Immature Gran # (Auto) 0.02 (0.00-0.02) K/uL Neut # (Auto) 4.56 (1.4-6.5) K/uL Lymph # (Auto) 2.61 (1.2-3.4) K/uL Clare # (Auto) 1.00 H (0.11-0.59) K/uL Eos # (Auto) 0.20 (0-0.5) K/uL Baso # (Auto) 0.05 (0-0.2) K/uL Sodium 141 (136-145) mmol/L Potassium (3.5-5.1) mmol/L Chloride 109 H (98-107) mmol/L Carbon Dioxide 30 (21-32) mmol/L Anion Gap 2.0 L (3-11) BUN 16 (7-18) mg/dl Creatinine 1.13 (0.6-1.4) mg/dl Est Cr Clr Drug Dosing 75.4 ml/min Est GFR ( Amer) 78.6 Est GFR (Non-Af Amer) 67.8 BUN/Creatinine Ratio 14.1 (10-20) Glucose 125 H (70-99) mg/dl POC Glucose 131 H (70-99) mg/dl Calcium 9.5 (8.5-10.1) mg/dl Magnesium (1.8-2.4) mg/dl 10/19/19 10/19/19 10/19/19 Range/Units 16:51 11:35 11:18 WBC (4.8-10.8) K/uL RBC (4.7-6.1) M/uL Hgb (14.0-18.0) g/dL Hct (42-52) % MCV (80-100) fL MCH (25-34) pg MCHC (32-36) g/dL RDW Std Deviation (36.4-46.3) fL RDW Coeff of August (11.5-14.5) % Plt Count (130-400) K/uL MPV (7.4-10.4) fL Immature Gran % (Auto) % Neut % (Auto) % Lymph % (Auto) % Clare % (Auto) % Eos % (Auto) % Baso % (Auto) % Immature Gran # (Auto) (0.00-0.02) K/uL Neut # (Auto) (1.4-6.5) K/uL Lymph # (Auto) (1.2-3.4) K/uL Clare # (Auto) (0.11-0.59) K/uL Eos # (Auto) (0-0.5) K/uL Baso # (Auto) (0-0.2) K/uL Sodium 138 (136-145) mmol/L Potassium 5.0 (3.5-5.1) mmol/L Chloride 107 (98-107) mmol/L Carbon Dioxide 28 (21-32) mmol/L Anion Gap 3.0 (3-11) BUN 18 (7-18) mg/dl Creatinine 1.10 (0.6-1.4) mg/dl Est Cr Clr Drug Dosing 77.9 ml/min Est GFR ( Amer) 81.2 Est GFR (Non-Af Amer) 70.1 BUN/Creatinine Ratio 16.8 (10-20) Glucose 164 H (70-99) mg/dl POC Glucose 128 H 149 H (70-99) mg/dl Calcium 9.2 (8.5-10.1) mg/dl Magnesium 2.0 (1.8-2.4) mg/dl 05/25/20 Range/Units 11:18 WBC 9.16 (4.8-10.8) K/uL RBC 5.03 (4.7-6.1) M/uL Hgb 16.3 (14.0-18.0) g/dL Hct 46.9 (42-52) % MCV 93.2 (80-100) fL MCH 32.4 (25-34) pg MCHC 34.8 (32-36) g/dL RDW Std Deviation 44.1 (36.4-46.3) fL RDW Coeff of August 13.0 (11.5-14.5) % Plt Count 169 (130-400) K/uL MPV 10.5 H (7.4-10.4) fL Immature Gran % (Auto) % Neut % (Auto) % Lymph % (Auto) % Clare % (Auto) % Eos % (Auto) % Baso % (Auto) % Immature Gran # (Auto) (0.00-0.02) K/uL Neut # (Auto) (1.4-6.5) K/uL Lymph # (Auto) (1.2-3.4) K/uL Clare # (Auto) (0.11-0.59) K/uL Eos # (Auto) (0-0.5) K/uL Baso # (Auto) (0-0.2) K/uL Sodium (136-145) mmol/L Potassium (3.5-5.1) mmol/L Chloride (98-107) mmol/L Carbon Dioxide (21-32) mmol/L Anion Gap (3-11) BUN (7-18) mg/dl Creatinine (0.6-1.4) mg/dl Est Cr Clr Drug Dosing ml/min Est GFR ( Amer) Est GFR (Non-Af Amer) BUN/Creatinine Ratio (10-20) Glucose (70-99) mg/dl POC Glucose (70-99) mg/dl Calcium (8.5-10.1) mg/dl Magnesium (1.8-2.4) mg/dl Medications Administered Current Inpatient Medications Acetaminophen (Tylenol) 650 mg PO Q4H PRN PRN Reason: Pain or Fever Stop: 11/15/19 23:33 Last Admin: 10/19/19 05:39 Dose: 650 mg Documented by: Aspirin (Ecotrin Ectab) 81 mg PO QAM [facility] Stop: 11/17/19 08:59 Last Admin: 10/19/19 09:21 Dose: 81 mg Documented by: Atorvastatin Calcium (Lipitor) 40 mg PO QPM [facility] Stop: 11/15/19 23:33 Last Admin: 10/19/19 22:15 Dose: 40 mg Documented by: Cetirizine HCl (Zyrtec) 5 mg PO QPM [facility] Stop: 11/15/19 23:33 Last Admin: 10/19/19 22:16 Dose: 5 mg Documented by: Dextrose (Dextrose 50%) 25 - 50 ml IV UD PRN; Protocol PRN Reason: Hypoglycemia Protocol Stop: 06/21/20 23:33 Ezetimibe (Zetia) 10 mg PO QAM [facility] Stop: 11/16/19 10:59 Last Admin: 10/19/19 09:21 Dose: 10 mg Documented by: Enoxaparin Sodium (Lovenox) 40 mg SQ QAM [facility] Stop: 11/16/19 08:59 Last Admin: 10/19/19 12:13 Dose: 40 mg Documented by: Famotidine (Pepcid) 10 mg PO BID [facility] Stop: 11/15/19 20:59 Last Admin: 10/19/19 22:15 Dose: 10 mg Documented by: Fexofenadine HCl (Crystal) 180 mg PO DAILY PRN PRN Reason: allergies Stop: 11/15/19 23:33 Last Admin: 10/17/19 08:37 Dose: 180 mg Documented by: Glucagon (Glucagen) 1 mg SQ UD PRN; Protocol PRN Reason: Hypoglycemia Protocol Stop: 11/15/19 23:33 Glucose (Dex4 Glucose) 4 - 8 tabs PO UD PRN; Protocol PRN Reason: Hypoglycemia Protocol Stop: 11/15/19 23:33 Glucose (Glucose 40%) 15 - 30 gm PO UD PRN; Protocol PRN Reason: Hypoglycemia Protocol Stop: 11/15/19 23:33 Promethazine HCl 12.5 mg/ (Sodium Chloride) 50.5 mls @ 202 mls/hr IV Q6H PRN PRN Reason: Nausea And Vomiting Stop: 11/15/19 23:33 Sodium Chloride (Nss 1000ml) 1,000 mls @ 95 mls/hr IV .[id number] [facility] Stop: 11/19/19 00:00 Last Admin: 10/20/19 00:52 Dose: 95 mls/hr Documented by: Insulin Aspart (Novolog Flexpen) 0 units SC ACHS [facility] Stop: 11/16/19 00:59 Last Admin: 10/19/19 22:16 Dose: Not Given Documented by: Insulin Human NPH (Novolin N Nph) 45 units SC BIDM [facility] Stop: 11/16/19 00:59 Last Admin: 10/19/19 16:56 Dose: 45 units Documented by: Levothyroxine Sodium (Synthroid) 50 mcg PO DAILYBB [facility] Stop: 11/16/19 06:29 Last Admin: 10/20/19 06:27 Dose: 50 mcg Documented by: Lisinopril (Zestril) 10 mg PO DAILY [facility] Stop: 11/16/19 08:59 Last Admin: 10/19/19 09:21 Dose: 10 mg Documented by: Metoprolol Succinate (Toprol Xl) 25 mg PO QAM [facility] Stop: 11/16/19 10:59 Last Admin: 10/19/19 09:21 Dose: 25 mg Documented by: Miscellaneous (Remove Nicoderm Patch) 1 ea N/A DAILY@0859 [facility] Stop: 11/16/19 08:58 Last Admin: 10/19/19 09:56 Dose: 1 ea Documented by: Miscellaneous (Carbohydrates For Hypoglycemia) 15 - 30 gm PO UD PRN PRN Reason: Hypoglycemia Protocol Stop: 11/15/19 23:33 Morphine Sulfate (Morphine Sulfate) 4 mg IV Q4H PRN PRN Reason: Pain Stop: 10/30/19 23:33 Nicotine (Nicoderm Cq) 14 mg TD QAM [facility] Stop: 11/15/19 20:24 Last Admin: 10/19/19 09:21 Dose: 14 mg Documented by: Nitroglycerin (Nitrostat) 0.4 mg SL UD PRN PRN Reason: Chest Pain Stop: 11/15/19 23:33 Sertraline HCl (Zoloft) 100 mg PO DAILY [facility] Stop: 11/16/19 08:59 Last Admin: 10/19/19 09:21 Dose: 100 mg Documented by: Tramadol HCl (Ultram) 25 - 50 mg PO Q4H PRN PRN Reason: Pain Stop: 11/15/19 23:33 (1) Chest pain Chest pain type: unspecified Qualified Code(s): R07.9 - Chest pain, unspecified
--- NOTE | 2019-10-20 09:47 | Cardiology Progress Note ---
Date of Service October 20, 2019 Assessment & Plan (1) Chest pain: (2) CAD in [place] artery: (3) SVT (supraventricular tachycardia): (4) Dyslipidemia: (5) DM2 (diabetes mellitus, type 2): (6) AAA (abdominal aortic aneurysm): (7) Hyperkalemia: (8) Tobacco abuse: Risks, benefits, and alternatives to cardiac catheterization discussed with patient at length. Agreeable to proceed with the procedure. He has drug- eluting stent candidate. Smoking cessation advised. Repeat serum potassium level ordered. Consider postponing catheterization additional 24 hours if hyperkalemia persists. Lisinopril will remain on hold at this time. Continue IV hydration with normal saline. Subjective Patient seen and examined at the bedside. Denies chest discomfort overnight. Sinus rhythm noted on telemetry. 2 brief salvos of paroxysmal supraventricular tachycardia recorded since admission. A.m. serum potassium level mildly elevated. Lisinopril placed on hold. Receiving IV normal saline in anticipation of cardiac catheterization. No events/concerns reported by nursing staff. Patient offers no other concerns/complaints at this time. Review of Systems Review of Systems: All systems reviewed & are unremarkable except as noted in HPI & below Physical Exam Constitutional: well developed and well nourished; no acute distress Respiratory: normal respiratory effort; no respiratory distress, no labored breathing and no retractions Auscultation: no crackles, no rales, no rhonchi, no wheezes and no pleural rub Cardiovascular: Rate/Rhythm: regular rate and regular rhythm Heart Sounds: normal S1 and normal S2; no murmur Vessels: no JVD and no carotid bruit E xtremities: no edema Gastrointestinal (Abdomen): Inspection/Auscultation: abdomen normal to inspection Percussion/Palpation: abdomen soft; abdomen nontender, no guarding, abdomen not rigid, no hepatomegaly and no abdominal mass Musculoskeletal: Extremities: strength 5/5 throughout Skin: no rashes, warm and dry Neurologic: moves all extremities; no focal motor deficits Speech / Cognition: normal speech Results & Data Vital Signs (Past 12 Hours) Vital Signs Temp Pulse Pulse Pulse Resp BP BP 10/20/19 08:00 59 L 10/20/19 07:22 36.5 C 58 L 18 117/77 10/20/19 04:42 36.4 C L 57 L 16 103/64 10/20/19 00:00 36.7 C 77 60 17 101/58 L Pulse Ox 10/20/19 08:00 10/20/19 07:22 97 10/20/19 04:42 97 10/20/19 00:00 95 (1) Chest pain Chest pain type: unspecified Qualified Code(s): R07.9 - Chest pain, unspecified (2) AAA (abdominal aortic aneurysm) Presence of rupture: without rupture Qualified Code(s): I71.4 - Abdominal aortic aneurysm, without rupture
--- NOTE | 2019-10-20 10:13 | Pre Anesthesia Assessment ---
Date of Service October 20, 2019 Pre Sedation Assessment Vital Signs Temp Pulse Pulse Pulse Resp BP BP 10/20/19 08:00 59 L 10/20/19 07:22 36.5 C 58 L 18 117/77 10/20/19 04:42 36.4 C L 57 L 16 103/64 10/20/19 00:00 36.7 C 77 60 17 101/58 L 10/19/19 20:01 36.9 C 72 18 111/69 10/19/19 15:14 37.1 C 66 18 105/61 10/19/19 11:48 36.7 C 66 18 131/77 Pulse Ox 10/20/19 08:00 10/20/19 07:22 97 10/20/19 04:42 97 10/20/19 00:00 95 10/19/19 20:01 97 10/19/19 15:14 94 10/19/19 11:48 98 Cardiovascular RRR, no murmur, no edema Respiratory normal respiratory effort, lungs clear to auscultation Pre-Sedation Airway Assessment Smoking Status: Heavy tobacco smoker ASA: ASA3 NPO Status Date of Last Intake of Fluids: 10/19/19 Date of Last Intake of Solid Food: 10/19/19 Procedure Planning Contraindications for Sedation: none Current Medications Reviewed: Yes Notes The planned sedation has been discussed with the patient. Informed Consent was obtained. I have identified the patient, determined the appropriateness of sedation and have assessed the patient immediately prior to the procedure. All medicine(s) and interventions are by my order.
[2019-10-20] MEDS ORDERED: fentaNYL citrate 100 MCG/2 ML VIAL ONE (10:22)
[2019-10-20] MEDS ORDERED: HEPARIN (PORCINE) 1000 UNIT/ML 10 ML (CATH LAB USE ONLY) ONE (10:22)
[2019-10-20] MEDS ORDERED: MIDAZOLAM HCL 1 MG/ML 2ML VIAL ONE (10:22)
[2019-10-20] MEDS ORDERED: NiCARDipine HCL INJ 2.5 MG/ML 10 ML AMP ONE (10:22)
[2019-10-20] MEDS ORDERED: NITROGLYCERIN/D5W 100MCG/ML 20ML SYR ONE (10:23)
--- NOTE | 2019-10-20 11:20 | Post Anesthesia Assessment ---
Date of Service October 20, 2019 Post Sedation Assessment Vital Signs Temp Pulse Pulse Pulse Resp BP BP 10/20/19 08:00 59 L 10/20/19 07:22 36.5 C 58 L 18 117/77 10/20/19 04:42 36.4 C L 57 L 16 103/64 10/20/19 00:00 36.7 C 77 60 17 101/58 L 10/19/19 20:01 36.9 C 72 18 111/69 10/19/19 15:14 37.1 C 66 18 105/61 10/19/19 11:48 36.7 C 66 18 131/77 Pulse Ox 10/20/19 08:00 10/20/19 07:22 97 10/20/19 04:42 97 10/20/19 00:00 95 10/19/19 20:01 97 10/19/19 15:14 94 10/19/19 11:48 98 Recovery Score Activity: Moves 4 extremities Respiration: Deep Breath/Cough Circulation: +/-20% PreAnes Value Consciousness: Arouseable (by name) Discharge Sedation Level of Care: Fast Track Phase II Post Sedation Plan On clinical assessment, the patient appears to have tolerated the sedation without complications. Patient is recovering as anticipated. Patient will continue to be monitored by nursing and may be discharged when sedation discharge criteria are met per below protocol. Upon Completions of procedure up to 15 minutes continue every 5 minute vital signs and the P.A.R. score; then discharge to a Phase I or Fast Track to Phase II per the following guidelines: * Discharge Patient to appropriate Phase II area if PAR is 8 or greater or return to pre- procedure baseline. The post - procedure orders will be as directed. * If PAR score is less than 8 or not return to pre-procedure baseline then patient will follow Phase I monitoring till PAR is reached for Phase II. The Phase I may be done in procedure room or may call to secure a Phase I area. * If naloxone or flumazenil are used for reversal, hold in Phase I for continued monitoring from when last reversal dose was given for a minimum of 60 minutes or longer pending the nurse and/or physician discretion of patient condition before discharge to Phase II. Please call the Sedation Physician to re-evaluate and complete post-note for discharge to Phase II area. Do NOT discharge from procedure sedation or Phase 1 until post- sedation evaluation note is complete by procedure /sedation MD Sedation Discharge Instructions to be given to the patient at discharge to home.
[2019-10-20] MEDS ORDERED: ACETAMINOPHEN 325 MG TAB PO PRN (11:34)
[2019-10-20] MEDS ORDERED: NITROGLYCERIN SL 0.4 MG/TAB TAB SL PRN (11:34)
--- NOTE | 2019-10-20 11:34 | Cardiac Catheterization ---
Cardiac Cath Procedure Full Procedure Date October 20, 2019 Pre-Procedure Diagnosis Pre-Procedure Diagnosis: Angina and CAD AUC Score AUC Score: 7 Post-Procedure Diagnosis Post-Procedure Diagnosis: Moderate CAD Procedure(s) Performed Procedure(s) Performed: Coronary Angiography and Left Heart Cath Strip Tank Tender Nicolas Hinton DO Truck And Transport Mechanic(s) Rachid NATURAL HISTORY COLLECTIONS CURATOR Estimated Blood Loss Estimated Blood Loss: 5cc Medication(s) Medication(s): Fentanyl, Lidocaine 1%, Nicardipine, Nitroglycerin and Versed Summary of Findings Short left main with subselective cannulization of LAD and left circumflex during coronary angiography. Right dominant coronary anatomy. The left anterior descending artery is a large vessel which wraps around the left ventricular apex. It gives rise to a large first diagonal branch vessel followed by a small second diagonal branch vessel. The proximal LAD demonstrates mild luminal irregularities with stenosis ranging from 10 to 20%. There is a 20% stenosis immediately proximal to the first large septal professor of chemical engineering. The mid segment demonstrates a smooth 30% stenosis distal to the second diagonal branch vessel with diffuse mild luminal irregularities of the distal LAD (10%). The diagonal branch vessel demonstrates a 20% ostial stenosis followed by mild luminal irregularities involving the mid and distal segments (10%). The second diagonal branch vessel is small (1 mm vessel) and free of significant obstructive disease. The left circumflex is a large nondominant vessel giving rise to a small (1 mm) first obtuse marginal followed by a large second bifurcating obtuse marginal branch vessel as well as 1 small posterior lateral branch. The proximal left circumflex demonstrates a 30% stenosis distal to the first obtuse marginal branch vessel. There is a 20% mid and 10% distal stenosis noted. The first obtuse marginal branch vessel is small demonstrating mild luminal irregularities (10%). The second obtuse marginal branch vessel is moderate caliber with a 20% followed by 30% proximal stenosis. Mild luminal irregularities are diffuse involving the mid to distal segments ranging from 10 to 20%. The posterior lateral branch vessel is small demonstrating mild luminal irregularities, 10%. The right coronary artery is a large dominant vessel with moderate calcification in the proximal segment and associated 30% tubular stenosis. The mid segment is diffusely diseased with stenosis ranging from 10 to 30%. There is a discrete 50% eccentric distal yesi nosis and an area of moderate calcification. The right ventricular marginal branch vessel demonstrates a 30% ostial stenosis. The posterior descending artery is small in caliber demonstrating mild luminal irregularities. There are 2 posterior lateral branch vessels demonstrate mild luminal irregularities, 10% stenosis. Hemodynamics Rest Ao:: 94/61/76 Final Ao: 105/56/76 LV: 107/8 Recommendations Recommendations: Medical Therapy and/or Counseling Specimens Specimens: None Radiation Exposure (mGy) 1323 Contrast (mls) 70 Fluids (cc crystalloids) Fluids (cc crystalloids): 300 Nss Anesthesia Moderate sedation. Start 1040 AM. End 1113 AM. Sedation monitor:Vicky HAGAN Procedural Complication(s) None Disposition PCU I attest to the content of the Intraoperative Record and any orders documented therein. Any exceptions are noted below. 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: Slug Press Operator Cardiac Status Clinical evaluation leading to the procedure CAD Presenation: Unstable angina Anginal Classification: CCS IV Heart Failure: No Imaging Studies Past 6 Months: Yes Stress Studies Past 6 Months: No Coronary Anatomy Dominant: Right Left Main (% Stenosis): Normal (Short) LAD (% Stenosis): Proximal (20%) and Mid (30%) D1 (% Stenosis): Ostial (20%) Circumflex (% Stenosis): Proximal (30%) OM2 (% Stenosis): Proximal (30%) RCA (% Stenosis): Proximal (30%), Mid (30%) and Distal (50%) Diagnostic Physicians Name: Nicolas Hinton DO Status: Urgent Closure Device Percutaneous Entry Location: Radial Closure Device: Radial Band Recommendations: Medical Therapy and/or Counseling Intraprocedure Events Significant Disection: No Perforation: No
[2019-10-20] MEDS: NICOTINE 14 MG/24 HR PATCH TD SCH (11:54)
[2019-10-20] MEDS: FAMOTIDINE 10 MG TABLET PO SCH (11:55)
[2019-10-20] MEDS: METOPROLOL SUCC 25MG EXT REL TAB PO SCH (11:55)
[2019-10-20] MEDS: SERTRALINE HCL 100 MG TABLET PO SCH (11:55)
[2019-10-20] MEDS: ENOXAPARIN INJ 40 MG/0.4 ML SYR SQ SCH (11:55)
[2019-10-20] MEDS: EZETIMIBE 10 MG TABLET PO SCH (11:55)
[2019-10-20] MEDS: ASPIRIN 81 MG ECTAB PO SCH (11:55)
[2019-10-20] MEDS: INSULIN HUMAN NPH SC SCH (12:19)
[2019-10-20] MEDS: INSULIN ASPART 100 UNITS/ML 3 ML PEN SC SCH ×2 (12:19→12:21)
--- NOTE | 2019-10-20 12:38 | Communication Note ---
Date of Service: October 20, 2019 Cath films reviewed with Dr Hinton. Moderate non obstructive disease. I think his presenting symptoms were likely due to anxiety and depression / overwhelming stressors and grief not angina. Risk factor management and medical treatment recommended from a heart standpoint. Stable for discharge after he completes post cath recovery. 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 follow up with cardio in 1-2 months. Plan 6 month imaging to follow up AAA, if stable, then every 12 months.
--- NOTE | 2019-10-20 14:12 | Discharge Summary ---
Date of Service October 20, 2019 Admission HPI Per Admitting Provider History obtained from patient, family, and records. Medical history significant for DM 2 insulin requiring, hyperlipidemia, mood disorder, past alcohol abuse, ongoing tobacco abuse. Patient moved to town about a month ago after residing in [place] the last 2 years. The last 2 weeks patient noted worsening shortness of breath usually on exertion. Epigastric discomfort a few days in a week described as indigestion-like relieved by baking soda at home. Significant personal stressors of late, fleeting suicidal ideations. Patient was driving back to [facility] from [place] after attending [facility] this afternoon when he experienced achy subcostal discomfort going to the left arm somewhat different from indigestion symptoms. Usual smoker's cough symptoms as per patient. At the ER, patient given aspirin and GI cocktail. Patient currently comfortable. 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 Admission Exam Per Admitting Provider GENERAL: Comfortable, obese, occasionally tearful, no respiratory distress SKIN: Normal color, warm HEENT: Bespectacled, [place] palpebral conjunctivae, no ptosis, moist buccal mucosa NECK : Supple, short neck, no tenderness CHEST : Decreased breath sounds, expiratory wheezes that clear post coughing, no tenderness HEART : RRR, no obvious murmurs ABDOMEN: Some distention, nontender EXTREMITIES : No LE swelling, no LE tenderness, no other conspicuous deformities noted NEUROLOGIC : Coherent, no facial asymmetry, no other gross focality Principal Diagnosis Chest pain secondary to anxiety/ stress Depression CAD, moderate nonobstructive disease Discharge Exam GENERAL: Elderly obese male, pleasant, in no acute distress HEENT: Normocephalic, atraumatic, EOMI, PERRL, pink palpebral conjunctivae, no ptosis, moist buccal mucosa NECK : Supple, short neck, no tenderness CHEST : Somewhat decreased breath sounds, but overall clear to auscultation bilaterally, no wheezing rhonchi or crackles HEART : RRR, no obvious murmurs ABDOMEN: Normal bowel sounds, soft, obese, nontender to palpation EXTREMITIES : No LE swelling, no LE tenderness, moves extremities spontaneously without difficulty SKIN: Warm, dry, well perfused NEUROLOGIC : Alert and oriented x3, answers questions appropriately, no facial asymmetry, speech fluent, moves extremities spontaneously and without difficulty Discharge Data Allergies Allergy/AdvReac Type Severity Reaction Status Date / Time cat dander Allergy itchy Verified 10/16/19 17:05 eyes, sneezing dog dander Allergy itchy Verified 10/16/19 17:05 eyes, sneezing Consultations 10/16/19 19:34 ED Decision to Admit Stat 10/16/19 23:34 Consult Cardiology Routine Consult Psychiatry Routine Procedures Performed Operation Date: 10/20/19 10:00 Actual Procedures p Cath, Left with Cors and Vent - Nicolas Hinton DO s Cineradiography w/Routine Exam - Nicolas Hinton DO Ordered Studies 10/16/19 16:16 CT abd pelvis IV con only Stat CT angio chest PE protocol Stat IMPRESSION: 1. There is no evidence of pulmonary embolus in the main, lobar, or segmental pulmonary arteries. 2. There is no airspace consolidation or pleural effusion. 3. Mild diffuse peribronchial thickening suggests bronchitis/reactive air disease. Clinical correlation will be required. 4. There are no acute infectious or inflammatory findings in the abdomen or pelvis. 5. There is a 3.3 cm aneurysm of the infrarenal abdominal aorta. 6. 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 7. Hepatomegaly. 8. Moderate to advanced colonic diverticulosis without CT evidence of acute diverticulitis. 9. There is advanced atherosclerotic calcification of the coronary arteries. 10/20/19 07:06 CL Cath Imgs for PACS use only Routine 10/20/19 10:02 CL Cath Imgs for PACS use only Stat Hospital Course (1) Chest pain: Chest pain troponin negative, EKG x2 negative Cardiology consulted - recommend ASA 81 mg (rather than 325), continued atorvastatin, add metoprolol. Echo obtained, there is normal left ventricular wall thickness. LV wall motion is normal. EF 55 to 60%. Diastolic dysfunction, grade 2. There is no significant valvular heart disease. Per cardiology recommendation, given significant risk factors, pt underwent cardiac cath today 10/20/19, which showed moderate nonobstructive disease. Per cardiology patient is safe for discharge, recommend to add metoprolol succinate 25 mg daily and Zetia 10 mg daily to his medications. Follow-up with cardiology in 1 to 2 months Dyslipidemia LDL cholesterol 79 mg/dL on atorvastatin 40mg daily. Add ezetimibe 10 mg daily. Ongoing tobacco use -Currently using nicotine patch -Smoking cessation counseling provided, discussed using 1 800 quit line, free cessation line -Patient currently determined to quit smoking, says previously quit for 11 months DM 2 insulin requiring, BSG elevated Update hemoglobin A1c, lipid profile Basal insulin, ISS BG goal [id number], carb count coverage Depression, suicidal ideations Suicide precautions Psych consult RE depression with suicidality Patient currently off one-on-one supervision Patient states he feels much better now and plans to follow-up with therapist Recently Zoloft dose was increased to 100 mg, will continue AAA, incidental finding on CT read Outpatient follow-up surveillance imaging for AAA Incidental finding of 3.3 cm abdominal aortic aneurysm on CT. Abdominal aorta with noted diffuse atherosclerosis. Continue aggressive statin therapy as noted above. Repeat surveillance CT or ultrasound in 6 months. Possible JANET as per patient account Outpatient sleep study Mild hyperkalemia -Potassium at times, 5.0, 5.2 -Hold lisinopril today -Recommend to follow-up as outpatient, recheck in about a week DVT prophylaxis. Lovenox subcu Full code Patient's family can be reached at following numbers. Ms. Janet Arteaga (), contact #[phone] Mr. Mauri Joshi (son), contact #[phone] Total Time Total Time Spent Total Time Spent (In Minutes): 40 Total Time Includes: Examination of the Patient, Discharge Planning, Medication Reconciliation and Communication With Other Providers Discharge Plan Discharge Items Patient Disposition: Home - Self-Care Reason For Visit: CP Discharge Diagnosis: Chest pain secondary to anxiety/ stress Depression CAD, moderate nonobstructive disease Condition on Discharge: Good Activity: Per Instructions section Non-emergency contact: Primary Care Provider and [facility] [employer] Call non-emergency contact if: you have any medication questions and your sympto ms worsen Follow-up/Referrals: Maddy Albert, DO [Primary Care Provider] - Diet: Carb Consistent or DM2 and Heart Healthy Addtl Attending Provider Instructions: Follow-up with your primary care doctor within 1 week. Follow-up with cardiology in 1 to 2 months. Also recommend to follow-up with your psychotherapist at your earliest convenience. You will need a follow-up imaging for the AAA 6 months from now. Please start taking following new medications: Metoprolol succinate 25 mg daily, Zetia 10 mg daily. Do not take aspirin 325 mg, instead take aspirin 81 mg daily. Continue to take your other home medications as prescribed. Your potassium was mildly elevated, recommend that your primary care doctor checks your potassium level at the next appointment. Addtl Senior Communications Specialist Provider Instructions: Strongly recommend smoking cessation. Consider calling 1 800 quit now, free smoking cessation line. Pending Studies at Discharge: No Stand-Alone Forms: My [facility], Smoking Cessation Medications and DC Order Prescriptions: New nicotine 7 mg/24 hr Patch 24 Hour 14 mg transdermal QAM 7 Days Qty: 7 RF: 0 ezetimibe [Zetia] 10 mg Tablet 10 mg PO QAM 30 Days Qty: 30 RF: 0 metoprolol succinate 25 mg Tablet Extended Release 24 Hr 25 mg PO QAM 30 Days Qty: 30 RF: 0 aspirin 81 mg Tablet,Delayed Release (Dr/Ec) 81 mg PO QAM 30 Days Qty: 30 RF: 0 Continued atorvastatin 40 mg tablet 40 mg PO QPM RF: 0 cetirizine [Zyrtec] 10 mg Tablet 5 mg PO QPM RF: 0 sertraline [Zoloft] 100 mg Tablet 100 mg PO DAILY RF: 0 fexofenadine 180 mg Tablet 180 mg PO DAILY PRN (Reason: allergies) RF: 0 sildenafil 100 mg Tablet 100 mg PO DAILY PRN (Reason: Erectile Dysfunction) RF: 0 levothyroxine 50 mcg tablet 50 mcg PO DAILY RF: 0 metformin 1,000 mg tablet 1,000 mg PO BID RF: 0 lisinopril [Zestril] 10 mg tablet 10 mg PO DAILY RF: 0 albuterol sulfate [Ventolin HFA] 90 mcg/actuation HFA aerosol inhaler 2 puff INHALATION Q4 PRN (Reason: Shortness Of Breath Or Wheezing) RF: 0 Victoza 3-Jones 0.6 mg/0.1 mL (18 mg/3 mL) pen injector 1.2 mg SUBCUT DAILY RF: 0 Nasal [place] Unknown 1 dose NA UD PRN (Reason: Nasal Congestion) RF: 0 T-Relief Cbd+13 1 dose SC UD RF: 0 Novolin N NPH U-100 Insulin 100 unit/mL Suspension 50 unit SUBCUT BID RF: 0 cholecalciferol (vitamin D3) [Vitamin D3] 125 mcg (5,000 unit) Tablet 125 mcg PO DAILY RF: 0 Humulin R U-500 (Conc) Kwikpen 500 unit/mL (3 mL) Insulin Pen 0 unit SUBCUT TIDM RF: 0 Discontinued aspirin 325 mg Tablet 325 mg PO DAILY RF: 0 Discharge Orders: Discharge Order (Routine); Ordered 10/20/19 Ordered By: Johnnie Calix/Other Patient Handouts: Diabetes Type 2 Managing, Smoking Quit Plan Admission Data Admit Date/Time: 10/18/19 07:21 Attending Provider: Johnnie Jones Admit Provider: Johnnie Sotomayor Primary Care Provider: Maddy Albert Other Providers: Johnnie Sotomayor ; Juan Day ; Joelle Gr Other Interventions: Discharge Summary Assessment (RN) Last Done: 10/20/19 14:03 PSY Interdisciplinary Discharge Planning Last Done: 10/20/19 08:40
== END 2019-10-20 15:00 | disposition home or self-care (01) ==
LOC: ED 16:00 → EDBD 16:00 → 2S 16:00